=== PATIENT | female | born 1970 | race Caucasian/White ===

== ENCOUNTER 2019-08-17 13:32 | Outpatient (CLI) | payer BC, SELFPAY ==
[2019-08-17] MEDS: SODIUM CHLORIDE 0.9% IV 1,000 ML 500 ML IVPB (14:05)
[2019-08-17 14:08] VITALS: BP 150/88; PULSE 100; RESP 16; TEMP 36.8; O2SAT 97
--- NOTE | 2019-08-17 17:02 | PC.NURSE ---
Patient tolerated fluids well. No c/o nausea @ time of discharge. Patient states I feel better. Patient ambulated to exit to meet .
== END 2019-08-17 13:33 | disposition home or self-care (01) ==
PROVIDERS: PCP Nurse Practitioner Family; Visit Provider Nurse Practitioner Family
DX: R11.2 Nausea with vomiting, unspecified (principal); E86.0 Dehydration
CPT/HCPCS: 96360; 96361

== ENCOUNTER 2019-08-18 09:15 | Outpatient (CLI) | payer BC, SELFPAY ==
--- NOTE | 2019-08-18 09:22 | ECG_ITS ---
Measurements Intervals [place] Rate: 91 P: 68 GA: 129 QRS: 87 QRSD: 88 T: 37 QT: 371 QTc: 457 Interpretive Statements SINUS RHYTHM WITH SINUS ARRHYTHMIA RIGHT ATRIAL ENLARGEMENT DELAYED PRECORDIAL R/S TRANSITION BORDERLINE ECG Electronically Signed On 08-18-2019 9:54:13 CDT by Johnathan Fatima D.O.
[2019-08-18 09:34] LABS: Basophils Absolute Auto 0.02 K/mm3 (0.00-0.10); Basophils Percent Auto 0.1 % (0.0-1.0); Eosinophils Absolute Auto 0.01 K/mm3 (0.02-0.50); Eosinophils Percent Auto 0.1 % (1.0-6.0); Hemoglobin 15.8 g/dL (12.0-15.0); Immature Granulocyte Absolute 0.09 K/mm3 (0.00-0.00); Immature Granulocyte Percent A 0.5 % (0.0-0.0); Lymphocytes Absolute Auto 2.27 K/mm3 (1.10-4.50); Lymphocytes Percent Auto 13.5 % (18.0-42.0); Mean Corpuscular HGB Conc 35.1 g/dL (32.0-36.0); Mean Corpuscular Hemoglobin 31.1 pg (27.0-31.0); Mean Corpuscular Volume 88.6 fL (78.0-102.0); Mean Platelet Volume 9.5 fl (9.2-11.8); Monocytes Absolute Auto 0.96 K/mm3 (0.10-0.90); Monocytes Percent Auto 5.7 % (2.0-11.0); Neutrophils Absolute Auto 13.4 K/mm3 (1.7-7.2); Neutrophils Percent Auto 80.1 % (50.0-70.0); Platelet Count Result 598 K/mm3 (150-420); Red Blood Count 5.08 M/mm3 (4.20-5.40); Red Cell Distribution Width 12.7 % (11.6-14.4); White Blood Count 16.8 K/mm3 (4.8-10.8)
[2019-08-18 09:39] LABS: Add Urine Microscopic? YES; Appearance Urine Clear (Clear); Bilirubin Urine Negative (Negative); Blood Urine 3+ (Negative); Color Urine Yellow (Yellow); Glucose Urine UA Negative (Negative); Ketones Urine Trace (Negative); Leukocyte Esterase Ur Negative (Negative); Nitrate Urine Negative (Negative); Protein Urine 3+ (Negative); Specific Grav Ur 1.025 (1.010-1.020); Urobilinogen Urine 0.2 mg/dL (0.2-1.0); pH Urine 6.5 (5.0-8.0)
[2019-08-18 09:46] LABS: Squamous Epithelial Cell Urine Many /hpf (Few); WBC Urine None seen /hpf (0-3)
[2019-08-18 09:47] LABS: Bacteria Urine 2+ /hpf
[2019-08-18 09:59] LABS: Alanine Aminotransferase 22 U/L (14-59); Albumin Level 4.2 g/dL (3.4-5.0); Alkaline Phosphatase 76 U/L (46-116); Aspartate Amino Transferase 23 U/L (15-37); Bilirubin,Total 0.5 mg/dL (0.00-1.00); Blood Urea Nitrogen 18 mg/dL (7-18); Calcium 9.3 mg/dL (8.5-10.1); Carbon Dioxide 28 mmol/L (21-32); Chloride 97 mmol/L (98-108); Cholesterol 189 mg/dL (0-200); Estimated Glomerular Filt Rate > 60; Glucose 134 mg/dL (70-99); HDL Direct 77 mg/dL (40-60); LDL Cholesterol Calculated 91 mg/dL (<130); Osmolality Calculated 287 mOsm/kg (285-295); Sodium 137 mmol/L (136-145); Thyroid Stimulating Hormone 2.21 uIU/mL (0.36-3.74); Triglycerides 104 mg/dL (0-150)
[2019-08-18 10:01] LABS: Troponin I 0.21 ng/mL (0.00-0.056)
== END 2019-08-18 09:16 | disposition home or self-care (01) ==
PROVIDERS: PCP Nurse Practitioner Family; Visit Provider Nurse Practitioner Family
DX: R00.0 Tachycardia, unspecified (principal); I10 Essential (primary) hypertension
CPT/HCPCS: 36415; 80053; 80061; 81001; 84443; 84484; 85025; 85055; 93005

== ENCOUNTER 2019-08-18 10:08 | Emergency (ER) | payer BC, SELFPAY ==
--- NOTE | ~2019-08-18 | XR_ITS ---
EXAMINATION: XR chest 2V DATE: 08/18/2019 10:57 INDICATION: Chest pain and hypertension TECHNIQUE: PA and lateral views of the chest were obtained. COMPARISON: None FINDINGS: The lungs are clear with no focal airspace opacities, pulmonary edema, pleural effusion or pneumothor ax. The cardiomediastinal silhouette is normal. Heterotopic ossification along the left coracoclavicu lar ligament likely sequela of old trauma. IMPRESSION: 1. No acute cardiopulmonary disease. Reviewed, dictated and finalized at location A.
[2019-08-18 10:10] VITALS: BP 151/97; PULSE 73; RESP 20; TEMP 36.9; O2SAT 99
--- NOTE | 2019-08-18 10:13 | ED.CHESTPAIN ---
HPI - Chest Pain General Chief Complaint: Shortness of Breath/Dyspnea Stated Complaint: Chest Pains Source: patient Mode of arrival: ambulatory Limitations: no limitations History of Present Illness HPI narrative: 49-year-old woman sent over to the emergency department today from a clinic after finding that she had a troponin 0.21 and had chest pain and elevated blood pressure overnight. Patient states that she has remote history of hypertension but through weight loss and exercise has managed well. On 08/13 she went out picked mushrooms and ate some of them. On the evening of 08/14 she began to have fever, chills, abdominal pain, nausea and vomiting. She states that she had very little diarrhea. The vomiting continued until yesterday. She received IV fluids in the clinic yesterday and states that Zofran controlled her vomiting. It was also noted in the clinic that she had hypertension (159/102) and she was prescribed 3 BP meds which she hasn't yet taken. Last evening she began to have a very fast heart rate, like her heart was beating out of her chest and was accompanied by lightheadedness and shortness of breath. She denies syncope. complaint: chest pain Onset (ago): hour(s) (12) Timing of current episode: episodic and now resolved Onset: during rest Pain location: substernal Pain radiation: none Severity: moderate Quality: tightness Relieving factors: nothing Exacerbating factors: nothing Associated symptoms: nausea, vomiting and fever Risk Factors Coronary artery disease risk factors: smoking history ( former), hypertension ( treated with weight loss and exercise) and family history of CAD before age 50 ( grandmother had an [place] in her 50s) Related Data On Oral Contraceptives: No Allergies Allergy/AdvReac Type Severity Reaction Status Date / Time No Known Allergies Allergy Unverified 08/18/19 08:55 Review of Systems Constitutional: Constitutional: Reports chills and Reports fever(s) Eyes: Eyes: Denies change in vision and Denies photophobia ENT: Denies dysphagia, Denies nasal congestion and Denies sore throat Cardiovascular: Cardiovascular: Reports as per HPI, Reports chest pain, Reports rapid heart rate and Denies radiating jaw, neck or arm pain Respiratory: Respiratory: Denies chest congestion, Denies cough, Reports dyspnea and Denies wheezing Gastrointestinal: Gastrointestinal: Reports abdominal pain, Reports nausea and Reports vomiting Genitourinary: Genitourinary: Denies nocturia and Denies dysuria Musculoskeletal: Musculoskeletal: Denies back pain, Denies joint swelling and Denies muscle cramps Integumentary/Breasts: Skin/Breast: Denies pruritus, Denies erythema and Denies rash Neurologic: Denies vertigo, Denies dizziness and Denies syncope Psychiatric: Psychiatric: Denies anxiety and Denies depression Hematologic/Lymphatic: Hematologic/Lymphatic: Denies easy bleeding and Denies easy bruising Allergic/Immunologic: Allergic/Immunologic: Denies lip swelling and Denies wheezing PMFSH Past Medical History Medical History (Updated 08/18/19 @ 12:31 by Alex Hirsch MD) Benign hypertension Hemorrhoids Hereditary multiple exostosis Nicotine dependence in remission Surgical History Surgical History (Updated 08/18/19 @ 11:30 by Alex Hirsch MD) History of Social History Social History Smoking packs per day: 1 Smoking cigarettes per day: 20.0 Years smoked: 35 Smoking pack-years: 35.00 Smoking status: Former smoker Alcohol intake: current Substance use: never Substance use type: does not use Gender identity (if verbalized by the patient): Female Spiritual care concerns: No Exam Const: General: healthy appearing, no acute distress and alert Orientation/consciousness: patient oriented x3 Limitations: no limitations HENMT: Ears: external ears normal, TM's normal bilaterally and EAC's normal M
--- NOTE | 2019-08-18 10:20 | ECG_ITS ---
Measurements Intervals [place] Rate: 85 P: 65 [place]: 136 QRS: 76 QRSD: 85 T: 16 QT: 394 QTc: 471 Interpretive Statements SINUS RHYTHM WITH SINUS ARRHYTHMIA DELAYED PRECORDIAL R/S TRANSITION BORDERLINE ST-T WAVE ABNORMALITY- INFERIOR LEADS BORDERLINE ECG Electronically Signed On 08-18-2019 10:34:03 CDT by Johnathan Fatima D.O.
[2019-08-18] MEDS: ASPIRIN 81 MG CHEWABLE TABLET 324 MG PO (10:49)
--- NOTE | 2019-08-18 10:52 | PC.NURSE ---
Report given to ELVIE Yoder
[2019-08-18 10:56] LABS: Amphetamine Screen Urine Negative (Negative); Barbiturate Screen Urine Negative (Negative); Benzodiazepines Screen Urine Negative (Negative); Cannabinoid Screen Urine Positive (Negative); Cocaine Screen Urine Negative (Negative); Methadone Screen Urine Negative (Negative); Opiate Screen Urine Negative (Negative); Phencyclidine Screen Urine Negative (Negative)
[2019-08-18] MEDS: SODIUM CHLORIDE 0.9% IV 1,000 ML 999 ML IV CONT (11:25)
[2019-08-18 11:26] LABS: INR 1.1; Partial Thromboplastin Time 28.8 SEC (22.3-31.6); Prothrombin Time 11.1 Seconds (9.64-11.0)
[2019-08-18] MEDS: ENOXAPARIN 60 MG/0.6 ML SYRINGE 50 MG SUB-Q (11:27)
[2019-08-18 11:28] LABS: D Dimer 0.66 mg/L (0.19-0.50)
[2019-08-18 11:34] LABS: Creatine Kinase 99 U/L (26-192); Lactate Dehydrogenase 275 U/L (81-234); Phosphorus 2.7 mg/dL (2.6-4.7)
[2019-08-18 11:37] LABS: Influenza Control Valid (Valid)
--- NOTE | 2019-08-18 11:42 | PC.NURSE ---
[facility] contacted for cardiology consult.
[2019-08-18 11:43] VITALS: BP 167/98; PULSE 81; RESP 16; O2SAT 99
[2019-08-18 11:49] LABS: Acetaminophen 1 ug/mL (10-30); Salicylate 1.9 mg/dL (2.8-20.0)
--- NOTE | 2019-08-18 11:50 | PC.NURSE ---
Pt ambulatory to bathroom. No complaints at this time.
[2019-08-18 11:51] LABS: Lipase 145 U/L (73-393)
[2019-08-18 11:56] LABS: Ethanol < 3 mg/dL (0-6)
--- NOTE | 2019-08-18 12:45 | PC.NURSE ---
Pt to be admitted to [facility] icu 5, dr mendez to accept pt.
--- NOTE | 2019-08-18 13:03 | PC.NURSE ---
Report called to [facility] nurse Noah. [facility] contacted for transfer. Pt updated.
[2019-08-18 13:04] VITALS: BP 175/98; PULSE 86; RESP 14; O2SAT 98
[2019-08-18 13:17] LABS: Troponin I 0.14 ng/mL (0.00-0.056)
[2019-08-19 13:42] LABS: SARS-CoV-2 RNA PCR Negative
== END 2019-08-18 13:27 | disposition short-term general hospital (02) ==
PROVIDERS: Emergency Provider Emergency Medicine
DX: I21.4 Non-ST elevation (NSTEMI) myocardial infarction (principal); I10 Essential (primary) hypertension; Z87.891 Personal history of nicotine dependence; Z20.828 Contact with and (suspected) exposure to other viral communicable diseases
CPT/HCPCS: 36415; 71046; 80307; 82550; 82553; 83615; 83690; 84100; 84484; 85380; 85610; 85730; 87040; 87086; 87088; 87635; 87804; 93005; 96360; 96372; 99285; A9270; C9803; J1650; J7030; U0003

== ENCOUNTER 2019-08-18 14:04 | Inpatient (IN) | payer BC, SELFPAY ==
[2019-08-18] VITALS (25 sets, daily range): BP systolic 170–244; BP diastolic 82–128; PULSE 66–151; RESP 15–22; TEMP 36.8–37.1; O2SAT 94–99; BMI 22.2
--- NOTE | ~2019-08-18 | US_ITS ---
EXAMINATION: US retroperitoneal duplex ltd DATE: 08/19/2019 11:13 INDICATION: Severe hypertension TECHNIQUE: Multiple grayscale, color Doppler, and pulsed Doppler images of the kidneys and renal danielle maxine were obtained. COMPARISON: CT dated 08/18/2019 FINDINGS: The aorta peak systolic velocity is 80 cm/s. The right renal artery peak systolic velocity is 112 cm/ s in the proximal segment, 232 cm/s in the mid segment, and 92 cm/s in the distal segment. The left r enal artery peak systolic velocity is 236 cm/s in the proximal segment, 146 cm/s in the mid segment, and 143 cm/s in the distal segment. IMPRESSION: 1. Elevated peak systolic velocities in the bilateral renal arteries which would be consistent with >50-60% stenosis however no evident stenosis is evident at the left or right renal arteries on the co ntrast-enhanced CT study from one day prior. Reviewed, dictated and finalized at location A. IMPRESSION: 1. Elevated peak systolic velocities in the bilateral renal arteries which wou ld be consistent with >50-60% stenosis however no evident stenosis is evident a t the left or right renal arteries on the contrast-enhanced CT study from one d ay prior.
--- NOTE | ~2019-08-18 | CT_ITS ---
EXAMINATION: CT brain wo con EXAM DATE: 08/18/2019 21:54 INDICATION: Sepsis. Central headache, hypertension. TECHNIQUE: Spiral CT of the head was performed without contrast. Axial, coronal and sagittal images were reviewed. The dose-length product (DLP) for this examination was 605.33 mGy-cm. The exposure w as tailored according to patient size, and iterative reconstruction (ASIR) was used as additional dos e reduction technique. There is no prior study for comparison. FINDINGS: There is no acute intraparenchymal hemorrhage. No evidence of intraparenchymal brain mass lesion. No evidence of acute infarction. There is no mass effect or midline shift. The ventricles are normal in size. There are no extra-axial collections. There are no acute calvarial fractures. T he orbits are unremarkable. Soft tissue is unremarkable. The visualized sinuses and mastoid air ilan ls are well aerated. IMPRESSION: 1. Unremarkable head CT examination. Reviewed, dictated and finalized at location G.
--- NOTE | ~2019-08-18 | CT_ITS ---
EXAMINATION: CT chest abdomen pelvis w con EXAM DATE: 08/18/2019 21:55 INDICATION: Hypertension. Sepsis. Influenza B. Central headache. TECHNIQUE: Spiral CT of the chest, abdomen and pelvis was performed following intravenous injection o f 100 mL Omnipaque 350. Axial, coronal and sagittal images were reviewed. The dose-length product ( DLP) for this examination was 386.39 mGy-cm. The exposure was tailored according to patient size (au to mA exposure control), and iterative reconstruction (ASIR) was used as additional dose reduction te chnique. Comparison is made to prior examination from 03/03/2018. FINDINGS: CHEST: There is mild to moderate emphysema. Triangular-shaped 5 mm right middle lobe nodule likely g ranuloma. There is round 3 mm right middle lobe perihilar nodule, image 65. Optional twelve-month fol low-up low-dose chest CT. There are no pleural or pericardial effusions. Tracheobronchial tree is p atent. There is no mediastinal, hilar or axillary lymphadenopathy. There is no pneumothorax. He art normal in size. No evidence of coronary arterial calcification. No central pulmonary emboli. ABDOMEN PELVIS: The liver, spleen, adrenal glands and pancreas are unremarkable. Gallbladder is unre markable. No biliary obstruction. Portal and splenic veins are patent. Kidneys enhance symmetrical ly. There is no hydronephrosis. There is IUD which appears to be centrally located within the endo metrium, expected position. The bladder is unremarkable. There is no retroperitoneal or pelvic lymp hadenopathy. There is mild scattered arteriosclerotic disease. The appendix is normal. The stomach and small bowel are unremarkable. There is expected amount of c olonic stool. No free intraperitoneal gas. There are no osteoblastic or osteolytic lesions identi fied. IMPRESSION: 1. Couple of small right middle lobe nodule statistically most likely granulomas; optional twelve-mo nth follow-up low-dose chest CT. 2. No acute chest, abdomen or pelvis findings. Reviewed, dictated and finalized at location G. IMPRESSION: 1. Couple of small right middle lobe nodule statistically most likely granulom as; optional twelve-month follow-up low-dose chest CT. 2. No acute chest, abdomen or pelvis findings.
--- NOTE | 2019-08-18 14:28 | ADMGEN ---
This patient, Thu Duval, was admitted to Intensive Care Unit-5 at 1402. Patient/family oriented to hospital policies and general routines including ID bracelet, bed and alarms, visiting hours, pain management, procedures, bathroom and other care routines, personal items, smoking policy, room service/diet, and visiting hours. Valuables list has been completed. Information on how to activate the Rapid Response Team has been discussed. Patient/Family are encouraged to report perceived risks to care and to ask questions if they do not understand what they are told or what they should do.
--- NOTE | 2019-08-18 15:03 | WPDCN ---
Assessment and Plan Assessment and plan (1) Elevated troponin: Code(s): R79.89 - Other specified abnormal findings of blood chemistry Status: Acute Assessment and Plan: Very mildly elevated troponin in the face of tachycardia, severe hypertension, nausea and vomiting, dehydration, and influenza B. Doubt underlying heart disease, not ACS. However this is a marker that patient needs aggressive primary prevention. check Echo. (2) Tachycardia: Code(s): R00.0 - Tachycardia, unspecified Status: Acute Assessment and Plan: The patient's chief complaint is that her heart felt like it was beating hard and fast. She likely had some sinus tachycardia this morning. Doubt any other arrhythmia. She never had any chest pain. I am not impressed with her EKG changes. (3) Uncontrolled hypertension: Code(s): I10 - Essential (primary) hypertension Status: Acute Assessment and Plan: History of hypertension, worsening recently. Needs blood pressure medications resumed. 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 (4) Influenza B: Code(s): J10.1 - Influenza due to other identified influenza virus with other respiratory manifestations Status: Acute Assessment and Plan: Somewhat atypical presentation, recovering. Will leave the decision of Tamiflu up to the hospitalist. (5) Nausea vomiting and diarrhea: Code(s): R11.2 - Nausea with vomiting, unspecified; R19.7 - Diarrhea, unspecified Status: Acute Assessment and Plan: Will give some more IV fluids and resume diet. (6) Hypokalemia: Code(s): E87.6 - Hypokalemia Status: Acute Assessment and Plan: Give p.o. potassium and recheck potassium and magnesium in the morning. HPI Data of Consult Date/Time: 08/18/19 15:03 Requesting Physician: Fozia Dozier MD Primary Care Provider: Date of service: 08/18/2019 Thu Duval is a 49-year-old female whom I was asked to see at the request of Dr. Dozier for my advice and opinion regarding her palpitations and elevated troponin in consultation. She is also positive for influenza B. COVID screen is still pending. Ms. Duval was in her normal state of health on Friday when she was out picking [employer] mushrooms. Very early Friday morning she started having problems with nausea and vomiting, chills and sweats, and myalgias. She had abdominal pain, a little diarrhea but no coughing or shortness of breath. She could not keep anything down for the next few days and saw the nurse practitioner Pearl Garcia in [place] on Friday. Her temperature was 99.6 and blood pressure 159/102 mmHg. She received a L of IV fluids and Zofran and felt better to eat a little. Last night and this morning she felt like her heart was going to be out of her chest, with hard fast heartbeats and she asked her to take her to the nurse practitioner. She denied any chest tightness, pain or pressure, or discomfort in her neck, jaw or arms. She felt just a ?quickness? in her chest. She went back to see the nurse practitioner, and her blood pressure was 182/122, heart rate 113 p.m.. She was given prescriptions for lisinopril, HCT and metoprolol which she has not yet started. Later went to the ER she was found to have a mildly elevated troponin of 0.21 blood pressure of 151/97, and sent to [facility] with a diagnosis of a non-STEMI. The patient was treated for hypertension to years ago but after she lost weight and quit smoking her blood pressure normalized. She has never had trouble with cholesterol. She is very physically active with no chest pain, pressure, or tightness and bikes 5 miles regularly with no problems. No family history of heart di
--- NOTE | 2019-08-18 15:45 | PM.IMHP ---
H&P: HPI History of Present Illness Chief complaint: Elevated troponin. Narrative: Thu Duval is a 49-year-old female with history of hypertension, no longer on medication after weight loss and exercise, who is being directly admitted to the hospitalist service from the emergency department at the [facility] for further evaluation of an elevated troponin level. She was in her usual state of health on 08/14/2019, and in fact spent some of the day picking [place] mushrooms which she consumed later that evening. The following evening, she began to feel poorly with diffuse abdominal pain, nausea, vomiting, and mild diarrhea. Additionally, she notes subjective fever, chills, and sweats. She was seen yesterday afternoon (08/17/2019) at her primary care provider's office, where her vital signs were as follows: Blood pressure 159/102, pulse ox 98% room air, temperature 99.6?, pulse 126, respiratory rate 18. She was given IV fluid rehydration for presumed dehydration and she was also given Zofran with some improvement. She had a follow-up appointment this morning, and while she still has nausea, she has not vomited since yesterday. She did not sleep well last night, due to restlessness and ?just not feeling right.? She also reported feelings of palpitations and as though her heart was beating out of her chest. Vital Signs in office today as follows: Pulse 113, respiratory 18, blood pressure 182/122, pulse ox 98% room air, temperature 99.0?. She was encouraged to come to the emergency department, but she declined. At that time, she was sent for lab work and was given prescriptions to resume antihypertensives, to include hydrochlorothiazide, metoprolol tartrate, and lisinopril. Her troponin came back elevated at 0.21, and she was then directed to the emergency department at [facility] for further evaluation. An EKG done on arrival to the emergency department was read as sinus rhythm with sinus arrhythmia, right atrial enlargement, and delayed precordial R/S transition. Repeat troponins have since trended downward. Pertinent labs drawn at outside hospital include: White blood cells 16.8, hemoglobin 15.8, hematocrit 45.0, platelets 598. PT 11.1, INR 1.1, PTT 28.8, D-dimer 0.66. Sodium 137, potassium 3.0, chloride 97, carbon dioxide 28, anion gap 15, BUN 18, creatinine 0.90, glucose 134. Total bilirubin 0.5, AST 23, ALT 22, alkaline phosphatase 76, LDH 275, total CK 99. Urinalysis: Specific gravity 1.025, 3+ protein, trace ketones, 3+ blood, 11 to 20 RBCs, no white blood cells, many squamous cells, 2+ bacteria, 3 to 4 granular casts. Urine drug screen positive for cannabinoids. She tested positive for influenza B. Chest x-ray showed no acute cardiopulmonary disease. Because of elevated troponins, she is being transferred to [facility] for consultation with a leg assembler. On arrival to [facility], her blood pressure was 175/98 at her pulse was 86. She was started on antihypertensives and was given lisinopril 10 milligrams and metoprolol succinate 25 milligrams at 16:48. Shortly thereafter, her blood pressure began to spike and she has become tachycardic. Her blood pressure less than 1 hour after taking those medications was as high as 244/128, and her pulse has been as high as the 160s with the appearance of sinus tachycardia on telemetry. At the time my evaluation, she tells me she just cannot get comfortable. She complains of having sweats, feeling flushed, and of being chilled all at the same time. She continues to have nausea but is not have had vomiting since last evening. Her abdomen is diffusely tender, and she reports that it feels like her insides are ?squeezing.? She does feel her heart racing, which causes her some anxiety. She has a mild headache. She also reports a mild, nonproductive cough. She denies chest pain, pleuritic pain, and shortness of breath. No auditory or visual changes.
[2019-08-18] MEDS: SODIUM CHLORIDE 0.9% IV 1,000 ML 125 ML IV CONT (16:17)
[2019-08-18 16:45] LABS: Lactic Acid Reflex 0.8 mmol/L (0.7-2.1)
[2019-08-18] MEDS: METOPROLOL SUCCINATE EXT REL 25 MG TABCR PO (16:48)
[2019-08-18] MEDS: lisinopriL 10 MG TABLET PO (16:48)
[2019-08-18] MEDS: POTASSIUM CHLORIDE 20 MEQ TABLET.ER 40 MEQ PO (16:49)
[2019-08-18 16:51] LABS: Blood Urea Nitrogen 17 mg/dL (7-17); Calcium 8.7 mg/dL (8.4-10.2); Carbon Dioxide 26 mmol/L (22-30); Chloride 105 mmol/L (98-107); Estimated Glomerular Filt Rate > 60; Glucose 101 mg/dL (65-105); Phosphorus 2.4 mg/dL (2.5-4.5); Potassium 2.8 mmol/L (3.4-5.0); Sodium 137 mmol/L (137-145)
[2019-08-18 16:59] LABS: Troponin I 0.081 ng/mL (0.000-0.034)
[2019-08-18] MEDS: hydrALAZINE HCL 20 MG/ML VIAL 10 MG IV PUSH (17:37)
[2019-08-18 19:57] LABS: NT Pro B Type Natriuretic Pept 2660 PG/ML (5-100)
[2019-08-18] MEDS: ACETAMINOPHEN 325 MG TABLET 650 MG PO (22:12)
[2019-08-19] VITALS (26 sets, daily range): BP systolic 131–213; BP diastolic 76–111; PULSE 70–119; RESP 17–20; TEMP 36.6–37.3; O2SAT 97–100
[2019-08-19] MEDS: SODIUM CHLORIDE 0.9% IV 1,000 ML 125 ML IV CONT ×2 (00:50→11:49)
[2019-08-19] MEDS: METOPROLOL TARTRATE INJ 5 MG/5 ML VIAL IV PUSH ×2 (01:40→14:15)
[2019-08-19] MEDS: hydrALAZINE HCL 20 MG/ML VIAL 10 MG IV PUSH ×2 (03:46→14:42)
[2019-08-19 04:18] LABS: Basophils Percent Auto 0.1 % (0.2-1.2); Hematocrit 39.9 % (37.0-47.0); Hemoglobin 13.6 g/dL (12.0-15.0); Immature Granulocyte Absolute 0.06 K/mm3 (0.00-0.031); Immature Granulocyte Percent A 0.4 % (0-0.5); Lymphocytes Absolute Auto 2.78 K/mm3 (0.9-3.2); Lymphocytes Percent Auto 17.8 % (18.3-44.2); Mean Corpuscular HGB Conc 34.1 g/dl (32-36); Mean Corpuscular Hemoglobin 30.3 pg (26-34); Mean Corpuscular Volume 88.9 fl (80-100); Mean Platelet Volume 9.9 fl (7.4-10.4); Monocytes Absolute Auto 1.2 K/mm3 (0.1-0.6); Monocytes Percent Auto 7.3 % (2.6-8.5); Neutrophils Absolute Auto 11.7 K/mm3 (1.3-6.7); Neutrophils Percent Auto 74.4 % (45.5-73.1); Platelet Count Result 521 k/mm3 (150-375); Red Blood Count 4.49 M/mm3 (4.2-5.4); Red Cell Distribution Width 12.9 % (11.5-14.5); White Blood Count 15.7 K/mm3 (4.5-10.0)
[2019-08-19 04:28] LABS: Lactic Acid 0.7 mmol/L (0.7-2.1)
[2019-08-19 04:32] LABS: Alanine Aminotransferase 16 U/L (4-35); Albumin Level 3.9 g/dL (3.5-5.1); Alkaline Phosphatase 66 U/L (38-126); Aspartate Amino Transferase 25 U/L (14-36); Bilirubin,Total 0.3 mg/dL (0.2-1.3); Blood Urea Nitrogen 12 mg/dL (7-17); CRP 0.7 mg/dL (<1.0); Calcium 8.4 mg/dL (8.4-10.2); Carbon Dioxide 25 mmol/L (22-30); Chloride 102 mmol/L (98-107); Estimated Glomerular Filt Rate > 60; Glucose 110 mg/dL (65-105); Magnesium 1.7 mg/dL (1.6-2.3); Phosphorus 2.7 mg/dL (2.5-4.5); Potassium 2.9 mmol/L (3.4-5.0); Sodium 134 mmol/L (137-145)
[2019-08-19] MEDS: METOPROLOL SUCCINATE EXT REL 25 MG TABCR PO (09:25)
[2019-08-19] MEDS: POTASSIUM CHLORIDE 20 MEQ TABLET.ER 40 MEQ PO (09:25)
--- NOTE | 2019-08-19 09:33 | PM.IMPN ---
Progress Note: A&P Assessment and Plan (1) Severe hypertension: Code(s): I10 - Essential (primary) hypertension Status: Acute Assessment and Plan: Last treated for hypertension approximately 2 years ago but improved with weight loss and exercise. Had difficulty on presentation with severely elevated blood pressure. Urine drug screen was positive for cannabinoids only. Blood pressure reviewed on 08/19/2019 and still remains elevated but not as high. Renal ultrasound and echocardiogram pending. Metanephrines pending. COVID-19 testing pending. On hold. Continue metoprolol. IV hydralazine as needed. Appreciate help from Cardiology. Will continue to monitor while awaiting additional tests. Adjust treatment as needed. (2) Tachycardia: Code(s): R00.0 - Tachycardia, unspecified Status: Acute Assessment and Plan: Telemetry reviewed on 08/19/2019 with heart rate now controlled with patient in sinus rhythm. COVID-19 testing pending as noted. Positive for influenza B. Additional testing ordered as noted above. Spiral CT chest, abdomen, pelvis with couple of small right middle lobe nodules statistically most likely granulomas with recommendation for follow-up low-dose chest CT in 12 months but no acute findings. Metanephrines still pending as noted. TSH normal. Will continue to monitor. (3) Hypokalemia: Code(s): E87.6 - Hypokalemia Status: Acute Assessment and Plan: Potassium still low at 2.9 this morning. IV replacement as well as oral replacement ordered. Will continue to monitor replace as needed. Magnesium 1.7. (4) Influenza B: Code(s): J10.1 - Influenza due to other identified influenza virus with other respiratory manifestations Status: Acute Assessment and Plan: Positive for influenza B at [facility]. Tamiflu not initiated as symptoms present for 5 days on presentation. Currently no respiratory symptoms. On room air. Chest x-ray as well as CT chest negative for acute changes. (5) Elevated troponin: Code(s): R79.89 - Other specified abnormal findings of blood chemistry Status: Acute Assessment and Plan: Cardiology consulted and appreciate input. Troponin levels mildly elevated and decreasing. Telemetry as noted above. Echocardiogram pending as noted above. (6) Abdominal pain: Qualifiers: Abdominal location: generalized Qualified Code(s): R10.84 - Generalized abdominal pain Code(s): R10.9 - Unspecified abdominal pain Status: Acute Assessment and Plan: Nausea and vomiting have now subsided. CT abdomen/pelvis with no acute changes as noted above. (7) DVT prophylaxis: Code(s): Z29.9 - Encounter for prophylactic measures, unspecified Status: Acute Assessment and Plan: SCDs. Time Spent With Patient Time with patient: 15 - 25 minutes Subjective Date/time seen: 08/19/19 09:33 Interval history: Date of Service: 08/19/2019. Admitted with severe hypertension, tachycardia, elevated troponin level, influenza B. Feels much better this morning. Does feel tired. No headache. No chest pain or palpitations. No shortness of breath. No abdominal pain. No nausea or vomiting. Review of Systems Review of Systems: Narrative: Feeling better this morning. Constitutional: Constitutional: Denies chills, Reports fatigue and Denies fever(s) ENT: Denies dysphagia Cardiovascular: Cardiovascular: Denies chest pain and Denies palpitations Respiratory: Respiratory: Denies cough and Denies dyspnea Gastrointestinal: Gastrointestinal: Denies abdominal pain, Denies nausea and Denies vomiting Genitourinary: Genitourinary: Reports no additional female genitourinary complaints Musculoskeletal: Musculoskeletal: Reports no additional musculoskeletal complaints Integumentary/Breasts: Skin/Breast: Denies rash Neurologic: Denies headache(s) Psychiatric: Psychiatric: De
[2019-08-19 14:50] LABS: Potassium 3.1 mmol/L (3.4-5.0)
[2019-08-19] MEDS: ONDANSETRON INJ 4 MG/2 ML VIAL IV PUSH (15:14)
--- NOTE | 2019-08-19 15:30 | PM.PNCARD ---
Progress Note: A&P Assessment and Plan (1) Elevated troponin: Code(s): R79.89 - Other specified abnormal findings of blood chemistry Status: Acute Assessment and Plan: Very mildly elevated troponin in the face of tachycardia, severe hypertension, nausea and vomiting, dehydration, and influenza B. Doubt underlying heart disease, not ACS. Echo pending (2) Tachycardia: Code(s): R00.0 - Tachycardia, unspecified Status: Acute Assessment and Plan: No complaints of palpitatons. No tachycardia on monitor. Beta Alexi started (3) Uncontrolled hypertension: Code(s): I10 - Essential (primary) hypertension Status: Acute Assessment and Plan: History of hypertension, worsening recently. Seemed to spike after eating last evening and this afternoon. BP still not controlled. No renal artery stenosis on CT scan Stop prn Metoprolol IV. Continue Metoprolol succinate 25 mg daily. Lisinopril 10 mg p.o. now and daily. Continue p.r.n. hydralazine for now. If her blood pressure is elevated near the time for scheduled medications give her medications early. (4) Influenza B: Code(s): J10.1 - Influenza due to other identified influenza virus with other respiratory manifestations Status: Acute Assessment and Plan: Somewhat atypical presentation, recovering. Management per hospitalist (5) Nausea vomiting and diarrhea: Code(s): R11.2 - Nausea with vomiting, unspecified; R19.7 - Diarrhea, unspecified Status: Acute Assessment and Plan: No further vomiting. Slight nausea on review of systems. Taking in p.o. fluids. Discontinue IV fluids. (6) Hypokalemia: Code(s): E87.6 - Hypokalemia Status: Acute Assessment and Plan: Potassium 2.9 this morning. Has received 40 mEq IV as well as 40 mEq p.o.. Repeat potassium is 3.1. Receiving more p.o. potassium. (7) Murmur: Code(s): R01.1 - Cardiac murmur, unspecified Status: Acute Assessment and Plan: Echo pending. Has never been told she had a murmur. Discussed what a murmur is. Echocardiogram will give us more information. Additional Plan Plan discussed with Dr Madrigal [id number] 08/19/2019 Time Spent With Patient Time with patient: 15 - 25 minutes Subjective Date/time seen: 08/19/19 14:45 Interval history: Follow up for: severe hypertension, tachycardia, elevated troponin level, influenza B. Date of service: 08/19/2019 Subjective: Denied chest discomfort, shortness of breath or palpitations. Slight nausea but no vomiting for 2 days. No diarrhea. Some back discomfort. Concerned about her blood pressure. Review of Systems Constitutional: Constitutional: Denies body ache(s), Denies chills, Reports fatigue (Did not sleep well), Denies headache(s) and Reports weakness (Generalized) Eyes: Eyes: Denies blurry vision ENT: Denies headache(s), Denies epistaxis and Denies nasal congestion Cardiovascular: Cardiovascular: Denies chest pain, Denies diaphoresis, Denies palpitations and Denies dyspnea Respiratory: Respiratory: Denies cough, Denies hemoptysis, Denies dyspnea and Denies wheezing Gastrointestinal: Gastrointestinal: Reports abdominal pain (muscular from vomiting (no vomiting for 2 days)), Denies hematochezia, Denies diarrhea, Reports nausea (Slight but able to eat.) and Denies vomiting Genitourinary: Genitourinary: Reports nocturia (Related IV fluids) and Denies dysuria Musculoskeletal: Musculoskeletal: Reports myalgias (Improving) Integumentary/Breasts: Skin/Breast: Denies rash Neurologic: Denies syncope, Denies headache(s) and Reports weakness (Generalized) Psychiatric: Psychiatric: Denies anxiety and Denies confusion E
[2019-08-19] MEDS: POTASSIUM CHLORIDE 20 MEQ TABLET 40 MEQ PO (15:36)
--- NOTE | 2019-08-19 15:41 | ECHO_ITS ---
Patient Info Name: Thu Duval Age: 49 years : 1970 Gender: Female Ht: 59 in Wt: 110 lbs BSA: 1.45 m2 HR: 75 bpm BP: 199 / 105 mmHg Heart Rhythm: Sinus Rhythm Technical Quality: Good Exam Date: 08/19/2019 2:36 PM Exam Location: [facility] Pulmonary Patient Status: Inpatient Admit Date: 08/18/2019 Staff Ordering Physician: Xena Madrigal MD Manager Life: Jian Torres, BELEM, RT Attending Provider: Fozia Miller MD Referring Physician: Rohan GUARDADO; Exam Type: CA echo doppler color flow Study Info Indications I27.2 - Other secondary pulmonary hypertension Complete two-dimensional, color flow and Doppler transthoracic echocardiogram is performed. Summary 1. There is mild mitral valve regurgitation. 2. Left ventricular chamber size and systolic function are normal with no regional wall motion abnormalities with an estimated ejection fraction of >70%. Grade 2 diastolic dysfunction is present. Mild septal hypertrophy is noted, with no evidence of left ventricular outflow tract obstruction or HOCM. Global longitudinal strain is -16%, mildly low, suggesting early systolic dysfunction. 3. Normal sinus rhythm. Left Ventricle Left ventricular chamber size and systolic function are normal with no regional wall motion abnormalities with an estimated ejection fraction of >70%. Grade 2 diastolic dysfunction is present. Mild septal hypertrophy is noted, with no evidence of left ventricular outflow tract obstruction or HOCM. Global longitudinal strain is -16%, mildly low, suggesting early systolic dysfunction. Left ventricular chamber dimension is normal. Left ventricular systolic function is normal, estimated at >70%. There is mild asymmetric septal increased left ventricular wall thickness. Left ventricular septal wall motion is normal. The left ventricular diastolic function is grade II diastolic dysfunction. Global longitudinal strain is mildly elevated at 16 %. Right Ventricle Right ventricular chamber dimension is normal. Right ventricular systolic function is normal. Left Atria Left atrial chamber dimension is normal. Right Atria Right atrial chamber dimension is normal. Aortic Valve The aortic valve is trileaflet. There is no aortic valve sclerosis. There is no aortic valve stenosis. There is no aortic valve regurgitation. Pulmonic Valve The pulmonic valve is normal. There is no pulmonic valve stenosis. There is no pulmonic regurgitation. Mitral Valve The mitral valve has normal leaflets. There is no mitral valve stenosis. There is mild mitral valve regurgitation. Tricuspid Valve The tricuspid valve leaflets are normal. There is no significant tricuspid valve stenosis. There is no tricuspid valve regurgitation. No pulmonary hypertension, estimated pulmonary arterial systolic pressure is Empty. Pericardium/Pleural The pericardium appears normal. There is no pericardial effusion. Inferior Vena Cava Normal inferior vena cava with >50% collapse upon inspiration consistent with Empty right atrial pressure, Empty. Aorta The aortic root size at the sinus of Valsalva is normal. The prox ascending aorta size is normal. Left Ventricular Outflow Tract Name Value Normal LVOT 2D
--- NOTE | 2019-08-19 18:40 | PC.NURSE ---
This patient, Thu Duval, was received from [ICU-5] on 08/19/19 at 1840. REPORT RECEIVED FROM EDUAR BERMEO. Personal belongings list checked and signed. Patient/family oriented to unit policies and routines
[2019-08-20] VITALS (19 sets, daily range): BP systolic 108–212; BP diastolic 61–108; PULSE 72–104; RESP 12–20; TEMP 36.3–37.3; O2SAT 98–100
[2019-08-20] MEDS: METOPROLOL TARTRATE INJ 5 MG/5 ML VIAL IV PUSH ×2 (00:11→15:26)
[2019-08-20 04:41] LABS: Hematocrit 40.8 % (37.0-47.0); Mean Corpuscular HGB Conc 34.3 g/dl (32-36); Mean Corpuscular Hemoglobin 30.7 pg (26-34); Mean Corpuscular Volume 89.5 fl (80-100); Mean Platelet Volume 9.2 fl (7.4-10.4); Platelet Count Result 519 k/mm3 (150-375); Red Blood Count 4.56 M/mm3 (4.2-5.4); Red Cell Distribution Width 12.9 % (11.5-14.5); White Blood Count 12.4 K/mm3 (4.5-10.0)
[2019-08-20 04:58] LABS: Blood Urea Nitrogen 8 mg/dL (7-17); Calcium 9.1 mg/dL (8.4-10.2); Carbon Dioxide 28 mmol/L (22-30); Chloride 101 mmol/L (98-107); Estimated Glomerular Filt Rate > 60; Glucose 108 mg/dL (65-105); Magnesium 1.9 mg/dL (1.6-2.3); Potassium 3.3 mmol/L (3.4-5.0); Sodium 134 mmol/L (137-145)
[2019-08-20] MEDS: METOPROLOL SUCCINATE EXT REL 25 MG TABCR PO ×2 (08:43→11:17)
[2019-08-20] MEDS: POTASSIUM CHLORIDE 20 MEQ TABLET.ER 40 MEQ PO (08:43)
[2019-08-20] MEDS: lisinopriL 10 MG TABLET PO (08:43)
--- NOTE | 2019-08-20 10:14 | PM.PNCARD ---
Progress Note: A&P Assessment and Plan (1) Elevated troponin: Code(s): R79.89 - Other specified abnormal findings of blood chemistry Status: Acute Assessment and Plan: Very mildly elevated troponin in the face of tachycardia, severe hypertension, nausea and vomiting, dehydration, and influenza B. Not ACS. Echo 08/19/2019:There is mild mitral valve regurgitation. Left ventricular chamber size and systolic function are normal with no regional wall motion abnormalities with an estimated ejection fraction of >70%. Grade 2 diastolic dysfunction is present. Mild septal hypertrophy is noted, with no evidence of left ventricular outflow tract obstruction or HOCM. Global longitudinal strain is -16%, mildly low, suggesting early systolic dysfunction. No ischemic workup is needed. Blood pressure control is imperative. (2) Tachycardia: Code(s): R00.0 - Tachycardia, unspecified Status: Acute Assessment and Plan: No complaints of palpitatons. Episodes of tachycardia yesterday afternoon and some this morning. Will increase Metoprolol succinate to 50 mg daily. Give an additional 25 mg this morning (3) Uncontrolled hypertension: Code(s): I10 - Essential (primary) hypertension Status: Acute Assessment and Plan: History of hypertension, worsening recently. Have seen a trend that she spikes after eating. Beta lorenzo as above Continue lisinopril at 10 mg daily. Most likely will need to be increased. If her blood pressure is elevated near the time for scheduled medications give her medications early. (4) Influenza B: Code(s): J10.1 - Influenza due to other identified influenza virus with other respiratory manifestations Status: Acute Assessment and Plan: Somewhat atypical presentation, recovering. Management per hospitalist (5) Nausea vomiting and diarrhea: Code(s): R11.2 - Nausea with vomiting, unspecified; R19.7 - Diarrhea, unspecified Status: Acute Assessment and Plan: No further vomiting. No further nausea. Taking in p.o. fluids. (6) Hypokalemia: Code(s): E87.6 - Hypokalemia Status: Acute Assessment and Plan: Potassium 3.3 this morning. Continue supplementation. Monitor closely as an outpatient. (7) Murmur: Code(s): R01.1 - Cardiac murmur, unspecified Status: Acute Assessment and Plan: Echo as above. Additional Plan No further cardiac recommendations. Cardiology will sign off. Please do not hesitate to call if we can be of further assistance. Does not need cardiology follow-up. Plan discussed with Dr. Szymanski [id number] 08/20/2019 Subjective Date/time seen: 08/20/19 10:14 Interval history: Follow up for: severe hypertension, tachycardia, elevated troponin level, influenza B. Date of service: 08/20/2019 Subjective: No chest discomfort, shortness of breath, palpitations or lightheadedness. No further nausea. Taking fluids and had oatmeal for breakfast. Review of Systems Constitutional: Constitutional: Denies body ache(s), Denies chills, Reports fatigue (Did not sleep well), Denies headache(s) and Reports weakness (Generalized) Eyes: Eyes: Denies blurry vision ENT: Denies headache(s), Denies epistaxis and Denies nasal congestion Cardiovascular: Cardiovascular: Denies chest pain, Denies diaphoresis, Denies syncope, Denies palpitations and Denies dyspnea Respiratory: Respiratory: Denies cough, Denies hemoptysis, Denies dyspnea and Denies wheezing Gastrointestinal: Gastrointestinal: Denies abdominal pain, Denies hematochezia, Denies diarrhea, Denies nausea and Denies vomiting Genitourinary: Genitourinary: Denies dysuria Musculoskeletal: Musculoskeletal:
--- NOTE | 2019-08-20 13:01 | PM.IMPN ---
Progress Note: A&P Assessment and Plan (1) Severe hypertension: Code(s): I10 - Essential (primary) hypertension Status: Acute Assessment and Plan: Last treated for hypertension approximately 2 years ago but improved with weight loss and exercise. Had difficulty on presentation with severely elevated blood pressure. Urine drug screen was positive for cannabinoids only. Blood pressure reviewed on 08/20/2019 and Under good control this morning but still having episodes of elevated blood pressure late afternoon. Discussed with Cardiology. Metoprolol succinate advanced this morning. Continue lisinopril which was restarted yesterday. IV hydralazine and IV metoprolol still available as needed. Metanephrines still pending. COVID-19 testing negative. Retroperitoneal duplex with elevated peak systolic velocities in the bilateral renal arteries which could be consistent with greater than 50-60% stenosis however no evidence stenosis evident at the left or right renal arteries on contrast enhanced CT previously done. Echocardiogram with EF greater than 70%, grade 2 diastolic dysfunction, mild septal hypertrophy. Will transfer to the medical floor to continue monitoring blood pressure. Hopeful discharge tomorrow. (2) Tachycardia: Code(s): R00.0 - Tachycardia, unspecified Status: Acute Assessment and Plan: Telemetry reviewed on 08/20/2019 with heart rate remaining controlled with patient in sinus rhythm. Echocardiogram as noted above. Spiral CT chest, abdomen, pelvis with couple of small right middle lobe nodules statistically most likely granulomas with recommendation for follow-up low-dose chest CT in 12 months but no acute findings. Metanephrines still pending as noted. TSH normal. Metoprolol advanced as noted above. Will continue to monitor. (3) Hypokalemia: Code(s): E87.6 - Hypokalemia Status: Acute Assessment and Plan: Potassium up to 3.3 this morning with scheduled replacement given. Will continue to monitor and replace as needed. (4) Influenza B: Code(s): J10.1 - Influenza due to other identified influenza virus with other respiratory manifestations Status: Acute Assessment and Plan: Positive for influenza B at [facility]. Tamiflu not initiated as symptoms present for 5 days on presentation. Currently no respiratory symptoms. Remains on room air. Chest x-ray as well as CT chest negative for acute changes. (5) Elevated troponin: Code(s): R79.89 - Other specified abnormal findings of blood chemistry Status: Acute Assessment and Plan: Cardiology consulted and appreciate input. Troponin levels mildly elevated and decreasing. Telemetry as noted above. Echocardiogram as noted above. (6) Abdominal pain: Qualifiers: Abdominal location: generalized Qualified Code(s): R10.84 - Generalized abdominal pain Code(s): R10.9 - Unspecified abdominal pain Status: Resolved Assessment and Plan: Nausea and vomiting have now subsided. No further abdominal pain. Urine culture negative with IV ceftriaxone discontinued. CT abdomen/pelvis with no acute changes as noted above. (7) DVT prophylaxis: Code(s): Z29.9 - Encounter for prophylactic measures, unspecified Status: Acute Assessment and Plan: SCDs. Time Spent With Patient Time with patient: 15 - 25 minutes Subjective Date/time seen: 08/20/19 13:01 Interval history: Date of Service: 08/20/2019. Admitted with severe hypertension, tachycardia, elevated troponin level, influenza B. Feeling better today. Did have significant elevation of blood pressure last evening. No current chest pain or shortness of breath. No headache or dizziness. No abdominal pain. Review of Systems Review of Systems: Narrative: Feeling better. Constitutional: Constitutional: Denies chills and Denies fever(s) ENT: Denies dysphagia Cardiovascula
--- NOTE | 2019-08-20 14:25 | PC.NURSE ---
This patient, Thu Duval, was transferred to [facility] on 08/20/19 at 1426. Personal belongings sent with patient. Belongings list checked and signed with receiving. Report given to ELVIE Villalba. Appropriate documentation sent with patient.
[2019-08-20] MEDS: hydrALAZINE HCL 20 MG/ML VIAL 10 MG IV PUSH (17:18)
[2019-08-21 06:00] VITALS: BP 123/66; PULSE 69; RESP 16; TEMP 36.8; O2SAT 100
[2019-08-21] MEDS: POTASSIUM CHLORIDE 20 MEQ TABLET.ER 40 MEQ PO (08:24)
[2019-08-21] MEDS: lisinopriL 10 MG TABLET PO (08:24)
[2019-08-21 08:25] VITALS: PULSE 69
[2019-08-21] MEDS: METOPROLOL SUCCINATE EXT REL 50 MG TABCR PO (08:25)
[2019-08-21 08:29] LABS: Blood Urea Nitrogen 13 mg/dL (7-17); Calcium 8.8 mg/dL (8.4-10.2); Carbon Dioxide 24 mmol/L (22-30); Chloride 102 mmol/L (98-107); Estimated Glomerular Filt Rate > 60; Glucose 92 mg/dL (65-105); Potassium 3.6 mmol/L (3.4-5.0); Sodium 134 mmol/L (137-145)
[2019-08-21 10:55] VITALS: BP 122/64; PULSE 68
--- NOTE | 2019-08-21 11:14 | PM.IMPN ---
Progress Note: A&P Assessment and Plan (1) Severe hypertension: Code(s): I10 - Essential (primary) hypertension Status: Acute Assessment and Plan: Last treated for hypertension approximately 2 years ago but improved with weight loss and exercise. Had difficulty on presentation with severely elevated blood pressure. Urine drug screen was positive for cannabinoids only. Blood pressure reviewed on 08/21/2019. Did have blood pressure spike yesterday afternoon for which she received IV metoprolol and IV hydralazine. Additional dose of oral metoprolol succinate ER was given. Blood pressure is controlled this morning before and after receiving medication. Also remains on lisinopril. COVID-19 testing negative. Metanephrines still pending. Retroperitoneal duplex with elevated peak systolic velocities in the bilateral renal arteries which could be consistent with greater than 50-60% stenosis however no evidence stenosis evident at the left or right renal arteries on contrast enhanced CT previously done. Echocardiogram with EF greater than 70%, grade 2 diastolic dysfunction, mild septal hypertrophy. Will discharge home today but will need to follow-up with her primary physician early next week. (2) Tachycardia: Code(s): R00.0 - Tachycardia, unspecified Status: Resolved Assessment and Plan: Now resolved. Echocardiogram as noted above. Spiral CT chest, abdomen, pelvis with couple of small right middle lobe nodules statistically most likely granulomas with recommendation for follow-up low-dose chest CT in 12 months but no acute findings. Metanephrines still pending as noted. TSH normal. Continue metoprolol as noted above. (3) Hypokalemia: Code(s): E87.6 - Hypokalemia Status: Acute Assessment and Plan: Potassium up to 3.6 today. Will send home with oral replacement and recheck as outpatient. (4) Influenza B: Code(s): J10.1 - Influenza due to other identified influenza virus with other respiratory manifestations Status: Acute Assessment and Plan: Positive for influenza B at [facility]. Tamiflu not initiated as symptoms present for 5 days on presentation. Remains without respiratory symptoms. Stable on room air. Chest x-ray as well as CT chest negative for acute changes. (5) Elevated troponin: Code(s): R79.89 - Other specified abnormal findings of blood chemistry Status: Acute Assessment and Plan: Cardiology consulted and appreciate input. Troponin levels mildly elevated and decreasing. Echocardiogram as noted above. (6) Abdominal pain: Qualifiers: Abdominal location: generalized Qualified Code(s): R10.84 - Generalized abdominal pain Code(s): R10.9 - Unspecified abdominal pain Status: Resolved Assessment and Plan: Nausea and vomiting have now subsided. No further abdominal pain. Urine culture negative with IV ceftriaxone discontinued. CT abdomen/pelvis with no acute changes as noted above. (7) DVT prophylaxis: Code(s): Z29.9 - Encounter for prophylactic measures, unspecified Status: Acute Assessment and Plan: SCDs. Time Spent With Patient Time with patient: 15 - 25 minutes Subjective Date/time seen: 08/21/19 11:14 Interval history: Date of Service: 08/21/2019. Admitted with severe hypertension, tachycardia, elevated troponin level, influenza B. Patient is feeling better today. No headache or dizziness. No chest pain. No shortness of breath. Did have 1 blood pressure spike after transfer to medical floor yesterday but none since. Wants to go home. Review of Systems Review of Systems: Narrative: Feeling better. Wants to go home. Constitutional: Constitutional: Denies chills and Denies fever(s) ENT: Denies dysphagia Cardiovascular: Cardiovascular: Denies chest pain Respiratory: Respiratory: Denies cough and Denies dyspnea Gastrointestinal: Joslyn
[2019-08-21 11:57] LABS: Metanephrine, Free 77 pg/mL (<=57); Normetanephrine, Free 390 pg/mL (<=148); Total, Free (MN + NMN) 467 pg/mL (<=205)
--- NOTE | 2019-08-21 17:20 | PM.DS ---
DS: Diagnosis Admitting Diagnosis Admitting Diagnosis: Other specified abnormal findings of blood chemistry Discharge Diagnosis (1) Severe hypertension: Code(s): I10 - Essential (primary) hypertension Status: Acute (2) Tachycardia: Code(s): R00.0 - Tachycardia, unspecified Status: Resolved (3) Hypokalemia: Code(s): E87.6 - Hypokalemia Status: Acute (4) Influenza B: Code(s): J10.1 - Influenza due to other identified influenza virus with other respiratory manifestations Status: Acute (5) Elevated troponin: Code(s): R79.89 - Other specified abnormal findings of blood chemistry Status: Acute (6) Abdominal pain: Qualifiers: Abdominal location: generalized Qualified Code(s): R10.84 - Generalized abdominal pain Code(s): R10.9 - Unspecified abdominal pain Status: Resolved DS: Summary Hospital Course Reason for hospitalization: Palpitations with elevated troponin level. Hospital Course: Date of Service of Discharge: August 21, 2019. History of Present Illness: Patient is a pleasant 49-year-old previous history of hypertension no longer on medication after weight loss and exercise who was a direct admission from the emergency department at [facility] for further evaluation of palpitations and elevated troponin level. Patient was in her usual state of health on Friday, August 14, 2019. On that day she did pick Macdonald mushrooms which she consumes later that evening. The following evening she began to feel poorly with diffuse abdominal pain, nausea, vomiting and mild diarrhea. She additionally noted fever, chills and sweats. She was seen on the afternoon of August 17, 2019 at her primary care provider's office with blood pressure elevated to 159/102 and pulse 126. She was given IV fluid rehydration for presumed dehydration also given Zofran. She had a follow-up appointment on the morning of presentation to the emergency room at which time she still is nauseated but had not vomited. She had not slept well due to restlessness and generally not feeling well. She also reported palpitations. Blood pressure in the office was 182/22 with pulse 113. As result, she was encouraged to go to the emergency department but declined. Instead she was sent for lab work as well as given prescriptions for antihypertensives. Troponin level was part of her laboratory working came back elevated at 0.21 which time she was directed to the emergency room. Patient did compliant and was evaluated in the emergency room. She was noted have significantly elevated blood pressure in addition to the elevated troponin. Chest x-ray was clear but influenza B screen was positive. COVID testing was initiated. Request was made for transfer to [facility] for cardiac evaluation. As result, she was admitted here as noted for further evaluation and treatment along with cardiology consultation. Course in Hospital: Patient was admitted to the IMU and initially placed on isolation while awaiting COVID-19 testing. Blood pressure continued to remain significantly elevated. IV metoprolol was ordered with IV hydralazine also available. She was seen in consultation by cardiology with EKG felt to not have any significant changes and elevated troponin not felt to be significant for acute coronary syndrome. Patient continued to be monitored with adjustment of medication for her blood pressure. Initially she was not given lisinopril while renal ultrasound duplex was performed did show elevated peak systolic velocities in the bilateral renal arteries which could be consistent with greater than 50-60% stenosis however no evidence of stenosis at the left or right renal arteries on contrast-enhanced CT done previously. Metanephrines were ordered but still pending at time of discharge. Echocardiogram was done with EF greater than 70%, grade 2 diastolic dysfunction and mild septal hypertroph
== END 2019-08-21 11:58 | disposition home or self-care (01) | DRG 305 ==
LOC: ANHICU 08-19 10:54 → ANHIMU 08-19 18:24 → ANH3MEDSUR 08-20 14:39
PROVIDERS: Physician Assistant; Admitting Provider Hospitalist; Visit Provider Hospitalist
DX: I10 Essential (primary) hypertension (principal); R79.89 Other specified abnormal findings of blood chemistry; R00.0 Tachycardia, unspecified; J10.1 Influenza due to other identified influenza virus with other respiratory manifestations; E87.6 Hypokalemia; Z20.828 Contact with and (suspected) exposure to other viral communicable diseases; Z87.891 Personal history of nicotine dependence; Q78.6 Multiple congenital exostoses; R01.1 Cardiac murmur, unspecified; E86.0 Dehydration; R10.84 Generalized abdominal pain
CPT/HCPCS: 36415; 70450; 71260; 74177; 80048; 80053; 82728; 83605; 83735; 83835; 83880; 84100; 84132; 84443; 84484; 85025; 85027; 86140; 87040; 93306; 93976; A9270; J0360; J0696; J2405; J3480; J7030; Q9967

== ENCOUNTER 2019-08-23 11:13 | Outpatient (CLI) | payer BC, SELFPAY ==
[2019-08-23 16:15] LABS: Blood Urea Nitrogen 14 mg/dL (7-18); Calcium 9.6 mg/dL (8.5-10.1); Carbon Dioxide 31 mmol/L (21-32); Estimated Glomerular Filt Rate > 60; Glucose 101 mg/dL (70-99)
[2019-08-23 17:40] LABS: Anion Gap 14.4 mmol/L (7-16); Chloride 102 mmol/L (98-108); Osmolality Calculated 296 mOsm/kg (285-295); Potassium 4.4 mmol/L (3.5-5.1); Sodium 143 mmol/L (136-145)
== END 2019-08-23 11:14 | disposition home or self-care (01) ==
LOC: CHSLAB 11:15
PROVIDERS: Hospitalist; PCP Nurse Practitioner Family; Visit Provider Nurse Practitioner Family
DX: E87.6 Hypokalemia (principal)
CPT/HCPCS: 36415; 80048

== ENCOUNTER 2020-01-31 06:59 | Outpatient (CLI) | payer BC, SELFPAY ==
--- NOTE | ~2020-01-31 | MM_ITS ---
EXAMINATION: MM screening purnima BI w maikel HISTORY: Screening TECHNIQUE: Craniocaudal and mediolateral oblique 3-D tomosynthesis images were obtained and synthetic 2-D images were generated. CAD analysis was submitted and interpreted. COMPARISON: 07/03/2016 BREAST PARENCHYMAL COMPOSITION: There are scattered areas of fibroglandular density. FINDINGS: There is no evidence of suspicious mass, calcification, or architectural distortion to sugg est malignancy in either breast. There has been no suspicious interval change. IMPRESSION: 1. No mammographic evidence of malignancy. 2. Recommend routine screening mammography in one year. BI-RADS Category 1: Negative Reviewed, dictated and finalized at location A.
== END 2020-01-31 07:00 | disposition home or self-care (01) ==
PROVIDERS: PCP Internal Medicine; Visit Provider Obstetrics & Gynecology
DX: Z12.31 Encounter for screening mammogram for malignant neoplasm of breast (principal)
CPT/HCPCS: 77063; 77067

== ENCOUNTER 2021-12-10 11:21 | Outpatient (CLI) | payer BC, SELFPAY ==
--- NOTE | ~2021-12-10 | CT_ITS ---
EXAMINATION: CT abdomen pelvis w con INDICATION: Abdominal pain TECHNIQUE: Computed tomographic images of the abdomen and pelvis were obtained after the administrati on of 100 cc of Omnipaque 350 intravenous contrast. The dose-length product (DLP) was 289.13 mGy-cm. Automated exposure control and iterative reconstruction technique were employed. COMPARISON: 08/18/2019 FINDINGS: A chronic nodule of the right middle lobe is consistent with old granulomatous disease. The heart size is normal. There is a 10 mm cyst in the right hepatic lobe. The spleen, pancreas, gallbla dder, and adrenal glands are normal. Hypoattenuating lesions in the left kidney, measuring up to 6 mm , are too small to characterize but likely represent cysts. The right kidney is unremarkable. No path ologically enlarged abdominal or pelvic lymph nodes are identified. There is no free intraperitoneal gas or evidence of bowel obstruction. The appendix is normal. IMPRESSION: 1. No CT correlate for the patient's symptoms. Reviewed, dictated and finalized at location A.
[2021-12-10 11:37] LABS: Hematocrit 43.6 % (35.0-49.0); Hemoglobin 14.7 g/dL (12.0-15.0); Immature Platelet Fraction Pct 2.1 % (1.0-7.0); Mean Corpuscular HGB Conc 33.7 g/dL (32.0-36.0); Mean Corpuscular Hemoglobin 30.2 pg (27.0-31.0); Mean Corpuscular Volume 89.7 fL (78.0-102.0); Mean Platelet Volume 9.8 fl (9.2-11.8); Platelet Count Result 590 K/mm3 (150-420); Red Blood Count 4.86 M/mm3 (4.20-5.40); Red Cell Distribution Width 12.6 % (11.6-14.4)
[2021-12-10 11:43] LABS: Add Urine Microscopic? YES; Appearance Urine Clear (Clear); Bilirubin Urine Negative (Negative); Blood Urine 3+ (Negative); Color Urine Yellow (Yellow); Glucose Urine UA Negative (Negative); Ketones Urine Trace (Negative); Leukocyte Esterase Ur Negative LEU/UL (Negative); Nitrate Urine Negative (Negative); Protein Urine 3+ (Negative); Specific Grav Ur 1.015 (1.010-1.020); Urobilinogen Urine 0.2 mg/dL (0.2-1.0); White Blood Count 24.3 K/mm3 (4.8-10.8); pH Urine 6.5 (5.0-8.0)
[2021-12-10 11:51] LABS: Alanine Aminotransferase 24 U/L (14-59); Albumin Level 3.9 g/dL (3.4-5.0); Alkaline Phosphatase 96 U/L (46-116); Amylase 92 U/L (25-115); Anion Gap 11 mmol/L (8-16); Aspartate Amino Transferase 57 U/L (15-37); Bilirubin,Total 0.4 mg/dL (0.00-1.00); Blood Urea Nitrogen 21 mg/dL (7-18); Calcium 9.3 mg/dL (8.5-10.1); Carbon Dioxide 25 mmol/L (21-32); Chloride 99 mmol/L (98-108); Estimated Glomerular Filt Rate > 60; Glucose 137 mg/dL (70-99); Lipase 72 U/L (73-393); Osmolality Calculated 285 mOsm/kg (285-295); Sodium 135 mmol/L (136-145); Total Protein 7.9 g/dL (6.4-8.2)
[2021-12-10 11:54] LABS: Bacteria Urine 1+ /hpf; Squamous Epithelial Cell Urine Few /hpf (Few); WBC Urine None seen /hpf (0-3)
[2021-12-10 11:59] LABS: Band Neutrophils Percent 1 % (0-6); Basophils Percent Manual 0 % (0-1); Eosinophils Percent Manual 0 % (1-6); Lymphocytes Absolute Manual 1.45 K/mm3 (1.1-4.5); Lymphocytes Percent Manual 6 % (18-44); Monocytes Absolute Manual 0.72 K/mm3 (0.1-0.90); Monocytes Percent Manual 3 % (3-9); Neutrophils Absolute Manual 22.11 K/mm3 (1.7-7.2); Neutrophils Percent Manual 90 % (46-73); Platelet Estimate Increased (Adequate); Total Cells Counted 100
== END 2021-12-10 11:22 | disposition home or self-care (01) ==
PROVIDERS: PCP Internal Medicine; Visit Provider Nurse Practitioner Family
DX: R10.9 Unspecified abdominal pain (principal); D72.829 Elevated white blood cell count, unspecified; R11.2 Nausea with vomiting, unspecified
CPT/HCPCS: 36415; 74177; 80053; 81001; 82150; 83690; 85025; 85055; Q9967

== ENCOUNTER 2021-12-24 14:15 | Outpatient (CLI) | payer BC, SELFPAY ==
[2021-12-24 14:27] LABS: Basophils Absolute Auto 0.01 K/mm3 (0.00-0.10); Basophils Percent Auto 0.1 % (0.0-1.0); Eosinophils Absolute Auto 0.14 K/mm3 (0.02-0.50); Eosinophils Percent Auto 1.4 % (1.0-6.0); Hematocrit 35.2 % (35.0-49.0); Hemoglobin 11.8 g/dL (12.0-15.0); Immature Granulocyte Absolute 0.03 K/mm3 (0.00-0.00); Immature Granulocyte Percent A 0.3 % (0.0-0.0); Lymphocytes Absolute Auto 3.12 K/mm3 (1.10-4.50); Lymphocytes Percent Auto 31.8 % (18.0-42.0); Mean Corpuscular HGB Conc 33.5 g/dL (32.0-36.0); Mean Corpuscular Hemoglobin 31.3 pg (27.0-31.0); Mean Corpuscular Volume 93.4 fL (78.0-102.0); Mean Platelet Volume 9.2 fl (9.2-11.8); Monocytes Absolute Auto 0.65 K/mm3 (0.10-0.90); Monocytes Percent Auto 6.6 % (2.0-11.0); Neutrophils Absolute Auto 5.9 K/mm3 (1.7-7.2); Neutrophils Percent Auto 59.8 % (50.0-70.0); Platelet Count Result 465 K/mm3 (150-420); Red Blood Count 3.77 M/mm3 (4.20-5.40); Red Cell Distribution Width 12.9 % (11.6-14.4); White Blood Count 9.8 K/mm3 (4.8-10.8)
[2021-12-24 14:33] LABS: Appearance Urine Clear (Clear); Bilirubin Urine Negative (Negative); Color Urine Yellow (Yellow); Glucose Urine UA Negative (Negative); Ketones Urine Trace (Negative); Leukocyte Esterase Ur Negative (Negative); Nitrate Urine Negative (Negative); Protein Urine Negative (Negative); Specific Grav Ur 1.015 (1.010-1.020); Urobilinogen Urine 0.2 mg/dL (0.2-1.0); pH Urine 6.5 (5.0-8.0)
[2021-12-24 14:45] LABS: Add Urine Microscopic? YES; Blood Urine Trace-Intact (Negative); WBC Urine 0-3 /hpf (0-3)
[2021-12-24 14:46] LABS: Amorphous Sediment Urine Few; Bacteria Urine Trace /hpf; Squamous Epithelial Cell Urine Few /hpf (Few)
[2021-12-24 14:59] LABS: Alanine Aminotransferase 20 U/L (14-59); Albumin Level 3.3 g/dL (3.4-5.0); Alkaline Phosphatase 72 U/L (46-116); Anion Gap 6 mmol/L (8-16); Aspartate Amino Transferase 20 U/L (15-37); Bilirubin,Total 0.2 mg/dL (0.00-1.00); Blood Urea Nitrogen 17 mg/dL (7-18); Calcium 8.9 mg/dL (8.5-10.1); Carbon Dioxide 30 mmol/L (21-32); Chloride 105 mmol/L (98-108); Estimated Glomerular Filt Rate > 60; Glucose 93 mg/dL (70-99); Osmolality Calculated 293 mOsm/kg (285-295); Potassium 3.8 mmol/L (3.5-5.1); Sodium 141 mmol/L (136-145); Total Protein 6.6 g/dL (6.4-8.2)
== END 2021-12-24 14:16 | disposition home or self-care (01) ==
LOC: CHSLAB 14:17
PROVIDERS: PCP Internal Medicine; Visit Provider Internal Medicine
DX: E86.0 Dehydration (principal); I10 Essential (primary) hypertension
CPT/HCPCS: 36415; 80053; 81001; 85025

== ENCOUNTER 2022-12-11 08:50 | Outpatient (CLI) | payer BC, SELFPAY ==
--- NOTE | ~2022-12-11 | MM_ITS ---
EXAMINATION: MM screening purnima BI w maikel HISTORY: Screening TECHNIQUE: Craniocaudal and mediolateral oblique 3-D tomosynthesis images were obtained and synthetic 2-D images were generated. CAD analysis was submitted and interpreted. COMPARISON: Comparison to multiple prior studies sequentially, with oldest reviewed study dated 08/2019. BREAST PARENCHYMAL COMPOSITION: The breasts are almost entirely fatty. FINDINGS: There is no evidence of suspicious mass, calcification, or architectural distortion to sugg est malignancy in either breast. There has been no suspicious interval change. IMPRESSION: 1. No mammographic evidence of malignancy. 2. Recommend routine screening mammography in one year. BI-RADS Category 1: Negative Reviewed, dictated and finalized at location A.
== END 2022-12-11 08:51 | disposition home or self-care (01) ==
LOC: CHSIMG 08:51
PROVIDERS: PCP Internal Medicine; Visit Provider Obstetrics & Gynecology
DX: Z12.31 Encounter for screening mammogram for malignant neoplasm of breast (principal)
CPT/HCPCS: 77063; 77067

== ENCOUNTER 2024-01-26 10:57 | Observation (INO) | payer BC, SELFPAY ==
[2024-01-26] VITALS (32 sets, daily range): BP systolic 124–208; BP diastolic 68–101; PULSE 75–126; RESP 8–22; TEMP 35.5–36.9; O2SAT 92–100; BMI 26.6
--- NOTE | 2024-01-26 11:13 | ED.GENADULT ---
HPI - General Adult General Chief complaint: Nausea/Vomiting/Diarrhea Stated complaint: covid, abd pain Time Seen by Provider: 01/26/24 10:58 History of Present Illness HPI narrative: Thu is a 53F with a PMH of HTN, nicotine dependence and an unspecified bone disorder that reported to the ED form her PCP office. She was on a cruise a few days ago and became very nauseated and vomited. She was found to be hypokalemic, and dehydrated. She was improving but came home and started vomiting. She was at the PCP office where she endorsed chest pain, nausea, and was found to be COVID positive. She now reports that her whole body hurts, she is fatigued. Related Data Home Medications Medication Instructions Recorded Confirmed verapamil 180 mg tablet,extended 180 mg PO DAILY 01/26/24 01/26/24 release Allergies Allergy/AdvReac Type Severity Reaction Status Date / Time No Known Allergies Allergy Unverified 01/26/24 11:15 Review of Systems Review of Systems: All systems reviewed & are unremarkable except as noted in HPI and below [facility] Past Medical History Medical History (Updated 01/26/24 @ 13:25 by Haim Lechuga DO) Abdominal pain DVT prophylaxis Elevated troponin Hemorrhoids Hereditary multiple exostosis Hypertension Influenza B Kidney stones At age [age] years old. Nausea vomiting and diarrhea Nicotine dependence in remission Tachycardia Uncontrolled hypertension Surgical History Surgical History (System 01/03/21 @ 16:28 by Robin Porras) H/O hand surgery Has had multiple surgeries on her hands and other extremities because of her hereditary multiple exostosis. History of X2. Family History Family History (System 01/03/21 @ 16:28 by Robin Porras) Mother Hypertension Mild dementia Father Hypertension Social History Social History (System 01/03/21 @ 16:28 by Robin Porras) Social History: The patient is and lives in [place] with her . They have 2 children. 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 She smoked 1 pack of cigarettes per day for about 35 years and quit in 2018. She denies significant alcohol use. She uses marijuana on occasion. Her , Erick, is her surrogate decision maker. She wishes to be a full code. Smoking packs per day: 1 Smoking cigarettes per day: 20.0 Years smoked: 35 Smoking pack-years: 35.00 Smoking status: Former smoker Tobacco type: cigarettes Smoking end date: 06/26/17 Alcohol intake: never Substance use: current Substance use type: marijuana Do You Feel Safe in your Home?: Yes Lack of Transportation: No Lack of Food: Never True Current Housing: I Have Housing Concerned About Future Housing: No Difficulty Paying Gas/Electric Bills: No Difficulty Paying for Meds: No Currently Unemployed: No Education: Associate Degree Difficulty w/ Childcare or Family Care: No Living arrangements: with family Gender identity (if verbalized by the patient): Female Spiritual care concerns: No Agree to blood products: Yes Exam Const: General: cooperative, comfortable, no acute distress, well developed, alert, awake and Physically active Orientation/consciousness: oriented to person, oriented to place and oriented to time HENMT: Head: normal to inspection, normocephalic and atraumatic Ears: hearing grossly normal bilaterally and external ears normal Face/Nose/Sinus: Normal external nose present Other: dry mucous membranes Eyes: General: appearance normal, both eyes and all related structures Periorbital: periorbital findings normal Sclera: sclerae normal Pupils: Equal, round and reactive pupils present Neck: Neck: normal visual inspection Chest: Chest palpation & inspection: normal inspection of the chest Resp: Effort & Inspection: normal respiratory effort, able to speak in complete sentences and no respiratory distress Auscultation: clear to auscultation bilaterally Cardio:
--- NOTE | 2024-01-26 11:16 | ECG_ITS ---
Test Date: 2024-01-26 11:13:46 Measurements Intervals [place] Rate: 90 P: 67 WY: 140 QRS: -17 QRSD: 89 T: 59 QT: 393 QTc: 481 Interpretive Statements SINUS RHYTHM POSSIBLE RIGHT ATRIAL ENLARGEMEN BORDERLINE ECG No previous ECG available for comparison Electronically Signed On 01-26-2024 13:44:24 CDT by Johnathan Fatima D.O.
[2024-01-26 11:42] LABS: Add Urine Microscopic? YES; Appearance Urine Clear (Clear); Bilirubin Urine Negative (Negative); Blood Urine 2+ (Negative); Color Urine Light Yellow (Yellow); Glucose Urine UA Negative (Negative); Ketones Urine Negative (Negative); Leukocyte Esterase Ur Negative LEU/UL (Negative); Nitrate Urine Negative (Negative); Protein Urine Negative (Negative); Urobilinogen Urine 0.2 mg/dL (0.2-1.0)
[2024-01-26] MEDS: SODIUM CHLORIDE 0.9% IV 1,000 ML 999 ML IV CONT (11:42)
[2024-01-26] MEDS: ONDANSETRON INJ 4 MG/2 ML VIAL IV PUSH ×2 (11:42→17:12)
[2024-01-26] MEDS: METOPROLOL TARTRATE INJ 5 MG/5 ML VIAL IV PUSH ×2 (11:43→13:03)
[2024-01-26 11:48] LABS: Amphetamine Screen Urine Negative (Negative); Barbiturate Screen Urine Negative (Negative); Benzodiazepines Screen Urine Negative (Negative); Cannabinoid Screen Urine Positive (Negative); Cocaine Screen Urine Negative (Negative); Methadone Screen Urine Negative (Negative); Opiate Screen Urine Negative (Negative); Phencyclidine Screen Urine Negative (Negative)
[2024-01-26 11:56] LABS: Basophils Absolute Auto 0.02 K/mm3 (0.00-0.10); Basophils Percent Auto 0.1 % (0.0-1.0); Hemoglobin 11.9 g/dL (12.0-15.0); Immature Granulocyte Absolute 0.13 K/mm3 (0.00-0.00); Immature Granulocyte Percent A 0.9 % (0.0-0.0); Immature Platelet Fraction Pct 1.7 % (1.0-7.0); Lymphocytes Absolute Auto 1.31 K/mm3 (1.10-4.50); Lymphocytes Percent Auto 8.7 % (18.0-42.0); Mean Corpuscular Hemoglobin 29.9 pg (27.0-31.0); Mean Corpuscular Volume 87.9 fL (78.0-102.0); Mean Platelet Volume 8.9 fl (9.2-11.8); Monocytes Absolute Auto 0.36 K/mm3 (0.10-0.90); Monocytes Percent Auto 2.4 % (2.0-11.0); Neutrophils Absolute Auto 13.23 K/mm3 (1.70-7.20); Neutrophils Percent Auto 87.9 % (50.0-70.0); Platelet Count Result 704 K/mm3 (150-420); Red Blood Count 3.98 M/mm3 (4.20-5.40); Red Cell Distribution Width 13.2 % (11.6-14.4); White Blood Count 15.1 K/mm3 (4.8-10.8)
[2024-01-26 11:57] LABS: Squamous Epithelial Cell Urine Few /hpf (Few); WBC Urine None seen /hpf (0-3)
[2024-01-26 11:58] LABS: Bacteria Urine Trace /hpf
[2024-01-26 12:07] LABS: INR 0.9
[2024-01-26 12:14] LABS: Lactic Acid Reflex 1.3 mmol/L (0.4-2.0)
[2024-01-26 12:16] LABS: CRP 2.9 mg/dL (0.0-0.9); Lipase 28 U/L (16-77); Magnesium 1.8 mg/dL (1.8-2.4); Troponin I 53.9 ng/L (0.00-60.4)
[2024-01-26 12:19] LABS: Alanine Aminotransferase 28 U/L (14-59); Alkaline Phosphatase 82 U/L (46-116); Anion Gap 10 mmol/L (4-12); Aspartate Amino Transferase 22 U/L (15-37); Bilirubin,Total 0.2 mg/dL (0.00-1.00); Blood Urea Nitrogen 13 mg/dL (7-18); Calcium 8.7 mg/dL (8.5-10.1); Carbon Dioxide 29 mmol/L (21-32); Chloride 101 mmol/L (98-108); Estimated Glomerular Filt Rate > 60; Glucose 160 mg/dL (70-99); Osmolality Calculated 293 mOsm/kg (285-295); Potassium 2.8 mmol/L (3.5-5.1); Sodium 140 mmol/L (136-145); Total Protein 7.1 g/dL (6.4-8.2)
[2024-01-26 12:22] LABS: Thyroid Stimulating Hormone 0.67 uIU/mL (0.36-3.74)
[2024-01-26 12:39] LABS: NT Pro B Type Natriuretic Pept 781 pg/mL (0-125)
[2024-01-26 12:42] LABS: Influenza A QL RT-PCR Negative (Negative); Influenza B QL RT-PCR Negative (Negative); RSV RNA, RT-PCR Negative (Negative); SARS-CoV-2 RNA PCR Negative (Negative)
[2024-01-26] MEDS: KCL 20 MEQ/SW 100 ML 100 ML 150 MEQ IVPB (13:03)
--- NOTE | 2024-01-26 13:55 | ADMGEN ---
This patient, Thu Duval, was admitted to 2nd Floor Room 208-2. Patient/family oriented to hospital policies and general routines including ID bracelet, bed and alarms, visiting hours, pain management, procedures, bathroom and other care routines, personal items, smoking policy, room service/diet, and visiting hours. Information on how to activate the Rapid Response Team has been discussed. Patient/Family are encouraged to report perceived risks to care and to ask questions if they do not understand what they are told or what they should do.
[2024-01-26] MEDS: SODIUM CHLORIDE 0.9% IV 250 ML 100 ML IV CONT (14:15)
[2024-01-26] MEDS: hydrALAZINE HCL 20 MG/ML VIAL IV PUSH (15:13)
[2024-01-26] MEDS: KCL 20MEQ/0.9% SOD CHL 1,000 ML 100 ML IV CONT (15:14)
[2024-01-26] MEDS: VERAPAMIL HCL 180 MG TABLET ER PO (16:45)
[2024-01-26 17:41] LABS: Troponin I 101.2 ng/L (0.00-60.4)
--- NOTE | 2024-01-26 17:43 | PC.NURSE ---
Lynda Joaquin, Hospitalist, notified of patient's current Troponin level being 101.2.
--- NOTE | 2024-01-26 19:00 | PC.NURSE ---
Patient having runs of tachycardia. SANTANA Sterling spoke with, N.O. to repeat EKG.
--- NOTE | 2024-01-26 19:50 | ECG_ITS ---
Test Date: 2024-01-26 19:59:29 Measurements Intervals [place] Rate: 106 P: 67 WY: 192 QRS: -33 QRSD: 84 T: 34 QT: 384 QTc: 511 Interpretive Statements SINUS TACHYCARDIA LEFT AXIS DEVIATION [QRS AXIS < -30] ABNORMALITY IN II/aVF] ABNORMAL ECG Compared to ECG 01/26/2024 11:13:46 Left-axis deviation now present Sinus rhythm no longer present Electronically Signed On 01-28-2024 13:44:08 CDT by Jose Alba M.D.
[2024-01-26] MEDS: PANTOPRAZOLE SODIUM IV 40 MG VIAL IV PUSH (20:33)
[2024-01-26 23:26] LABS: Troponin I 122.3 ng/L (0.00-60.4)
[2024-01-27] VITALS: PULSE 94
[2024-01-27] MEDS: KCL 20MEQ/0.9% SOD CHL 1,000 ML 100 ML IV CONT (01:07)
[2024-01-27 04:00] VITALS: BP 130/68; PULSE 89; PULSE 99; RESP 18; TEMP 36.5; O2SAT 96
[2024-01-27 05:45] LABS: Basophils Absolute Auto 0.01 K/mm3 (0.00-0.10); Basophils Percent Auto 0.1 % (0.0-1.0); Eosinophils Absolute Auto 0.09 K/mm3 (0.02-0.50); Eosinophils Percent Auto 0.6 % (1.0-6.0); Hematocrit 30.3 % (35.0-49.0); Hemoglobin 10.1 g/dL (12.0-15.0); Immature Granulocyte Absolute 0.11 K/mm3 (0.00-0.00); Immature Granulocyte Percent A 0.7 % (0.0-0.0); Immature Platelet Fraction Pct 1.2 % (1.0-7.0); Lymphocytes Absolute Auto 4.44 K/mm3 (1.10-4.50); Lymphocytes Percent Auto 29.6 % (18.0-42.0); Mean Corpuscular HGB Conc 33.3 g/dL (32-36); Mean Corpuscular Hemoglobin 29.7 pg (27.0-31.0); Mean Corpuscular Volume 89.1 fL (78.0-102.0); Mean Platelet Volume 8.7 fl (9.2-11.8); Monocytes Absolute Auto 0.96 K/mm3 (0.10-0.90); Monocytes Percent Auto 6.4 % (2.0-11.0); Neutrophils Absolute Auto 9.38 K/mm3 (1.70-7.20); Neutrophils Percent Auto 62.6 % (50.0-70.0); Platelet Count Result 618 K/mm3 (150-420); Red Cell Distribution Width 13.7 % (11.6-14.4)
[2024-01-27 06:02] LABS: Alanine Aminotransferase 20 U/L (14-59); Albumin Level 2.2 g/dL (3.4-5.0); Alkaline Phosphatase 61 U/L (46-116); Anion Gap 10 mmol/L (4-12); Aspartate Amino Transferase 14 U/L (15-37); Bilirubin,Total 0.2 mg/dL (0.00-1.00); Blood Urea Nitrogen 6 mg/dL (7-18); Calcium 7.8 mg/dL (8.5-10.1); Carbon Dioxide 25 mmol/L (21-32); Chloride 104 mmol/L (98-108); Estimated Glomerular Filt Rate > 60; Glucose 125 mg/dL (70-99); Magnesium 1.6 mg/dL (1.8-2.4); Osmolality Calculated 286 mOsm/kg (285-295); Potassium 2.8 mmol/L (3.5-5.1); Sodium 139 mmol/L (136-145); Total Protein 5.5 g/dL (6.4-8.2)
[2024-01-27 07:54] LABS: Troponin I 73.5 ng/L (0.00-60.4)
[2024-01-27 08:00] VITALS: BP 110/68; PULSE 84; PULSE 91; RESP 17; TEMP 36.3; O2SAT 99
[2024-01-27] MEDS: MAGNESIUM SULF 2 GM/WATER 50ML 2 GM/50 ML BAG IVPB (08:56)
[2024-01-27] MEDS: POTASSIUM CHLORIDE 20 MEQ ER TABLET 40 MEQ PO ×2 (08:57→13:26)
[2024-01-27] MEDS: PANTOPRAZOLE SODIUM IV 40 MG VIAL IV PUSH (08:57)
[2024-01-27 12:00] VITALS: PULSE 86
[2024-01-27 12:51] LABS: Anion Gap 10 mmol/L (4-12); Blood Urea Nitrogen 5 mg/dL (7-18); Calcium 8.1 mg/dL (8.5-10.1); Carbon Dioxide 25 mmol/L (21-32); Chloride 104 mmol/L (98-108); Estimated Glomerular Filt Rate > 60; Glucose 125 mg/dL (70-99); Osmolality Calculated 286 mOsm/kg (285-295); Potassium 3.2 mmol/L (3.5-5.1); Sodium 139 mmol/L (136-145)
--- NOTE | 2024-01-27 13:20 | PM.SD2 ---
Same Day Admit/Disch: HPI History of Present Illness Chief complaint: hypokaemia hyperensive urgency Narrative: Thu Duval is a 53 year old female who presented to the emergency department with complaints of nausea and vomiting. In the emergency department patient to hypokalemia and hypo magnesium as being in a hypertensive crisis. patient was admitted to the medical cardiac for further evaluation treatment. patient denied any chest pain, shortness a breath abdominal fever chills however did endorse continuing nausea and vomiting. [facility] Past Medical History Medical History Abdominal pain DVT prophylaxis Elevated troponin Hemorrhoids Hereditary multiple exostosis Hypertension Influenza B Kidney stones At age [age] years old. Nausea vomiting and diarrhea Nicotine dependence in remission Tachycardia Uncontrolled hypertension Surgical History Surgical History H/O hand surgery Has had multiple surgeries on her hands and other extremities because of her hereditary multiple exostosis. History of X2. Family History Family History Mother Hypertension Mild dementia Father Hypertension Social History Social History Social History: The patient is and lives in [place] with her . They have 2 children. 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 She smoked 1 pack of cigarettes per day for about 35 years and quit in 2018. She denies significant alcohol use. She uses marijuana on occasion. Her , Erick, is her surrogate decision maker. She wishes to be a full code. Smoking packs per day: 1 Smoking cigarettes per day: 20.0 Years smoked: 35 Smoking pack-years: 35.00 Smoking status: Former smoker Tobacco type: cigarettes Smoking end date: 06/26/17 Alcohol intake: never Substance use: current Substance use type: marijuana Do You Feel Safe in your Home?: Yes Lack of Transportation: No Lack of Food: Never True Current Housing: I Have Housing Concerned About Future Housing: No Difficulty Paying Gas/Electric Bills: No Difficulty Paying for Meds: No Currently Unemployed: No Education: Associate Degree Difficulty w/ Childcare or Family Care: No Living arrangements: with family Gender identity (if verbalized by the patient): Female Spiritual care concerns: No Agree to blood products: Yes Same Day Admit/Disch: Med Pre-admit Medications Home Medications Medication Instructions Recorded Confirmed Type verapamil 180 mg tablet,extended 180 mg PO DAILY 01/26/24 01/26/24 History release ondansetron 8 mg disintegrating 8 mg PO Q8H PRN nausea and 01/27/24 Rx tablet vomiting #30 tabs pantoprazole 40 mg tablet,delayed 40 mg PO QAM #14 tabs 01/27/24 Rx release potassium chloride 20 mEq 20 meq PO BID #10 tabs 01/27/24 Rx tablet,extended release(part/cryst) (Edwina Caldera) Review of Systems Review of Systems All systems reviewed & are unremarkable except as noted in HPI and below Exam Narrative: Physical Exam: GENERAL: Pleasant Alert and oriented x 3 female. No acute distress. EYES: PERRLA. HEENT: Moist mucous membranes. LUNGS: Clear to auscultation bilaterally. No accessory muscle use. CARDIOVASCULAR: Regular rate and rhythm. No murmur. S1-S2 ABDOMEN: Soft, non tenderness and non-distended. No palpable masses. EXTREMITIES: No edema. Non-tender SKIN: No rashes or lesions. Skin warm, dry. NEUROLOGIC: No focal neurological deficits. CN II-XII grossly intact PSYCHIATRIC: Appropriate mood and affect. Good judgement and insight. DS: Data Data Completed and Pending Labs on day of discharge: Labs from last 24 hours 01/27/24 01/27/24 01/26/24 12:23
--- NOTE | 2024-01-27 14:20 | PC.NURSE ---
Discharge instructions reviewed with patient and her . All questions answered. Pt ambulated self for discharge.
--- NOTE | 2024-01-30 08:55 | PC.NURSE ---
Discharge call back complete, feeling better, no questions regarding dc instructions
== END 2024-01-27 14:20 | disposition home or self-care (01) ==
LOC: CHSED 13:25 → CHS2ND 13:48
PROVIDERS: Nurse Practitioner Family; Admitting Provider Internal Medicine; Emergency Provider Family Medicine; PCP Internal Medicine; Visit Provider Internal Medicine
DX: I16.9 Hypertensive crisis, unspecified (principal); I10 Essential (primary) hypertension; E86.0 Dehydration; E87.6 Hypokalemia; E83.42 Hypomagnesemia; Z87.891 Personal history of nicotine dependence; Z20.822 Contact with and (suspected) exposure to COVID-19
CPT/HCPCS: 36415; 80048; 80053; 80307; 81001; 83605; 83690; 83735; 83880; 84443; 84484; 85025; 85055; 85610; 86140; 87637; 93005; 96361; 96365; 96366; 96367; 96375; 96376; 99285; A9270; G0378; J0360; J2405; J2470; J3475; J3480; J7030; J7050

== ENCOUNTER 2024-04-12 08:01 | Outpatient (CLI) | payer BC, SELFPAY ==
--- NOTE | ~2024-04-12 | MM_ITS ---
EXAMINATION: MM screening purnima BI w maikel HISTORY: Screening TECHNIQUE: Craniocaudal and mediolateral oblique 3-D tomosynthesis images were obtained and synthetic 2-D images were generated. CAD analysis was submitted and interpreted. COMPARISON: Comparison to multiple prior studies sequentially, with oldest reviewed study dated 11/2016. BREAST PARENCHYMAL COMPOSITION: Not Dense. The breasts are almost entirely fatty. FINDINGS: There is no evidence of suspicious mass, calcification, or architectural distortion to sugg est malignancy in either breast. There has been no suspicious interval change. IMPRESSION: 1. No mammographic evidence of malignancy. 2. Recommend routine screening mammography in one year. BI-RADS Category 1: Negative Reviewed, dictated and finalized at location B. [place] SHIFT MANAGER
--- OUTSIDE RECORDS SUMMARY | 2024-04-18 02:50 | XMS_ITS | Encounter Summary ---
Author Organization [facility] Address [address] [place] [address]. [place], [place] [phone] [place], [place] [id number] Care Team Providers Care Associate Property Manager Name Role Phone Unavailable Primary Care Provider Unavailabl e Encounter Details Date Type Department Care Team (Late st Contact Info) Description 04/02/1999 Abstract [facility] [address] [place] [address] , Generic Conversion, Social History Tobacco Use Types Packs/Day Years Used Date Smoking Tobacco: Never Assessed Comments Unknown Sex and Gender Information Value Date Recorded Sex Assigned at Not on file Legal Sex Female 7:34 PM CDT Gender Identity Not on file Sexual Orientation Not on file documented as of this encounter Plan of Treatment Not on file documented as of this encounter Visit Diagnoses Not on filedocumented in this encounter
--- OUTSIDE RECORDS SUMMARY | 2024-04-18 02:50 | XMS_ITS | Encounter Summary ---
Author Organization [facility] Address [address] [place] [address]. [place] [address] [place] [address] Care Team Providers Care Relief Master Name Role Phone Unavailable Primary Care Provider Unavailabl e Encounter Details Date Type Department Care Team (Late st Contact Info) Description 07/05/2016 Abstract [facility] [address] [place] [address] Steph Gutierrez MD [address] [place] [address] Social History Tobacco Use Types Packs/Day Years Used Date Smoking Tobacco: Never Assessed Comments Unknown Sex and Gender Information Value Date Recorded Sex Assigned at Not on file Legal Sex Female 7:34 PM CDT Gender Identity Not on file Sexual Orientation Not on file documented as of this encounter Plan of Treatment Not on file documented as of this encounter Visit Diagnoses Diagnosis Breast lump Lump or mass in breast documented in this encounter
--- OUTSIDE RECORDS SUMMARY | 2024-04-18 02:50 | XMS_ITS | Encounter Summary ---
Author Organization [facility] Address [address] [place] [address]. [place], [place] [phone] [place], [place] [id number] Care Team Providers Care Cq Developer Name Role Phone Unavailable Primary Care Provider Unavailabl e Encounter Details Date Type Department Care Team (Late st Contact Info) Description 01/14/1996 Abstract [facility] [address] [place] [address] , Generic Conversion, Social History Tobacco Use [...]
--- OUTSIDE RECORDS SUMMARY | 2024-04-18 02:50 | XMS_ITS | Encounter Summary ---
Author Organization [facility] Address [address] [place] [address]. [place], [place] [address] [place], [place] [phone] Care Team Providers Care Product Responsibility Liaison Name Role Phone Unavailable Primary Care Provider Unavailabl e Encounter Details Date Type Department Care Team (Late st Contact Info) Description 03/29/1999 Abstract [facility] [address] [place] [address] , Generic Conversion, Social History Tobacco Use [...]
--- OUTSIDE RECORDS SUMMARY | 2024-04-18 02:50 | XMS_ITS | Encounter Summary ---
Author Organization [facility] Address [address] [place] [address]. [place], [place] [address] [place], [place] [phone] Care Team Providers Care Research Staff Member Name Role Phone Unavailable Primary Care Provider Unavailabl e Encounter Details Date Type Department Care Team (Late st Contact Info) Description 04/12/1999 Abstract [facility] [address] [place] [address] , Generic Conversion, Social History Tobacco Use [...]
--- OUTSIDE RECORDS SUMMARY | 2024-04-18 02:50 | XMS_ITS | Encounter Summary ---
Author Organization [facility] Address [address] [place] [address]. [place], [place] [address] [place], [place] [phone] Care Team Providers Care Line Erector Apprentice Name Role Phone Unavailable Primary Care Provider Unavailabl e Encounter Details Date Type Department Care Team (Late st Contact Info) Description 12/27/1995 Abstract [facility] [address] [place] [address] , Generic Conversion, Social History Tobacco Use [...]
--- OUTSIDE RECORDS SUMMARY | 2024-04-18 02:50 | XMS_ITS | Encounter Summary ---
Author Organization [facility] Address [address] [place] [address]. [place], [place] [address] [place], [place] [phone] Care Team Providers Care Telephone Directory Deliverer Name Role Phone Unavailable Primary Care Provider Unavailabl e Encounter Details Date Type Department Care Team (Late st Contact Info) Description 04/12/1999 Abstract [facility] [address] [place] [address] , Generic Conversion, Social History Tobacco Use [...]
--- OUTSIDE RECORDS SUMMARY | 2024-04-18 02:50 | XMS_ITS | Encounter Summary ---
Author Organization [facility] Address [address] [place] [address]. [place], [place] [phone] [place] [address] Care Team Providers Care V Belt Curer Name Role Phone Unavailable Primary Care Provider Unavailabl e Encounter Details Date Type Department Care Team (Late st Contact Info) Description 09/26/2009 Abstract [facility] [address] [facility] [place] [address] Jazzmine Sevilla MD Social History Tobacco Use Types Packs/Day Years Used Date Smoking Tobacco: Never Assessed Comments Unknown Sex and Gender Information Value Date Recorded Sex Assigned at Not on file Legal Sex Female 7:34 PM CDT Gender Identity Not on file Sexual Orientation Not on file documented as of this encounter Plan of Treatment Not on file documented as of this encounter Visit Diagnoses Diagnosis Other and unspecified ovarian cyst documented in this encounter
--- OUTSIDE RECORDS SUMMARY | 2024-04-18 02:50 | XMS_ITS | Encounter Summary ---
Author Organization [facility] Address [address] [place] [address]. [id number] [place], [place] [phone] Care Team Providers Care Draftsperson Name Role Phone Unavailable Primary Care Provider Unavailabl e Encounter Details Date Type Department Care Team (Late st Contact Info) Description 04/09/1999 Abstract [facility] [address] [place] [address] , Generic Conversion, Social History Tobacco Use [...]
--- OUTSIDE RECORDS SUMMARY | 2024-04-18 02:50 | XMS_ITS | Encounter Summary ---
Author Organization [facility] Address [address] [place] [address]. [place], [place] [address] [place], [place] [phone] Care Team Providers Care Laborer Operator Name Role Phone Unavailable Primary Care Provider Unavailabl e Encounter Details Date Type Department Care Team (Late st Contact Info) Description 01/02/1996 Abstract [facility] [address] [place] [address] , Generic Conversion, Social History Tobacco Use [...]
--- OUTSIDE RECORDS SUMMARY | 2024-04-18 02:50 | XMS_ITS | Encounter Summary ---
Author Organization [facility] Address [address] [place] [address]. [place], [place] [phone] [place], [place] [phone] Care Team Providers Care Straight Knife Machine Cutter Name Role Phone Unavailable Primary Care Provider Unavailabl e Encounter Details Date Type Department Care Team (Late st Contact Info) Description 12/09/1997 Abstract [facility] [address] [place] [address] , Generic Conversion, Social History Tobacco Use [...]
--- OUTSIDE RECORDS SUMMARY | 2024-04-18 02:50 | XMS_ITS | Encounter Summary ---
Author Organization [facility] Address [address] [place] [address]. [place], [place] [address] [place], [place] [phone] Care Team Providers Care Retirement Officer Name Role Phone Unavailable Primary Care Provider Unavailabl e Encounter Details Date Type Department Care Team (Late st Contact Info) Description 03/23/1999 Abstract [facility] [address] [place] [address] , Generic Conversion, Social History Tobacco Use [...]
--- OUTSIDE RECORDS SUMMARY | 2024-04-18 02:50 | XMS_ITS | Encounter Summary ---
Author Organization [facility] Address [address] [place] [address]. [place], [place] [address] [place] [address] Care Team Providers Care Perishable Fruit Inspector Name Role Phone Unavailable Primary Care Provider Unavailabl e Encounter Details Date Type Department Care Team (Late st Contact Info) Description 09/19/[address] [facility] [address] [place] [address] Jazzmine Sevilla MD Social History Tobacco Use [...] as of this encounter Visit Diagnoses Diagnosis Symptom associated with female genital organs Unspecified symptom associated with female genital organs documented in this encounter
--- OUTSIDE RECORDS SUMMARY | 2024-04-18 02:50 | XMS_ITS | Encounter Summary ---
Author Organization [facility] Address [address] [place] [address]. [place] [address] [place] [address] Care Team Providers Care Roll Forger Name Role Phone Unavailable Primary Care Provider Unavailabl e Encounter Details Date Type Department Care Team (Late st Contact Info) Description 09/04/2011 Abstract [facility] [address] [place] [address] Winifred Ibarra MD [address] [place] [address] Social History Tobacco Use Types Packs/Day Years Used Date Smoking Tobacco: Never Assessed Comments Unknown Sex and Gender Information Value Date Recorded Sex Assigned at Not on file Legal Sex Female 7:34 PM CDT Gender Identity Not on file Sexual Orientation Not on file documented as of this encounter Plan of Treatment Not on file documented as of this encounter Visit Diagnoses Diagnosis Dyspepsia and other specified disorders of function of stomach documented in this encounter
--- OUTSIDE RECORDS SUMMARY | 2024-04-18 02:50 | XMS_ITS | Encounter Summary ---
Author Organization [facility] Address [address] [place] [address]. [place], [place] [phone] [place], [place] [phone] Care Team Providers Care Adoption Counselor Name Role Phone Unavailable Primary Care Provider Unavailabl e Encounter Details Date Type Department Care Team (Late st Contact Info) Description 04/16/1999 Abstract [facility] [address] [place] [address] , Generic Conversion, Social History Tobacco Use [...]
--- OUTSIDE RECORDS SUMMARY | 2024-04-18 02:50 | XMS_ITS | Encounter Summary ---
Author Organization [facility] Address [address] [place] [address]. [place], [place] [address] [place], [place] [phone] Care Team Providers Care Visual Developer Name Role Phone Unavailable Primary Care Provider Unavailabl e Encounter Details Date Type Department Care Team (Late st Contact Info) Description 05/21/2000 Abstract [facility] [address] [place] [address] , Generic Conversion, Social History Tobacco Use [...]
--- OUTSIDE RECORDS SUMMARY | 2024-04-18 02:50 | XMS_ITS | Encounter Summary ---
Author Organization [facility] Address [address] [place] [address]. [place], [place] [address] [place], [place] [phone] Care Team Providers Care Insurance Representative Name Role Phone Unavailable Primary Care Provider Unavailabl e Encounter Details Date Type Department Care Team (Late st Contact Info) Description 04/05/1999 Abstract [facility] [address] [place] [address] , Generic Conversion, Social History Tobacco Use [...]
--- OUTSIDE RECORDS SUMMARY | 2024-04-18 02:50 | XMS_ITS | Clinical Summary ---
Author Organization [facility] Address [address] [place] [address]. [place] [address] Care Team Providers Care Senior Product Designer Name Role Phone Unavailable Primary Care Provider Unavailabl e Social History Tobacco Use Types Packs/Day Years Used Date Smoking Tobacco: Never Assessed Comments Unknown Sex and Gender Information Value Date Recorded Sex Assigned at Not on file Legal Sex Female 7:34 PM CDT Gender Identity Not on file Sexual Orientation Not on file Plan of Treatment Health Maintenance Due Date Last Done Comments Cervical Cancer Screening Pa p Smear (Age 30 to 64) Every 3 Years 1969 Colorectal Cancer Screening Colonoscopy (10 Years) 1969 Annual Physical 1972 Hepatitis C 07/12/1987 DTaP, Tdap and Td Vaccines ( 1 - Tdap) 1988 Hepatitis B Vaccines (1 of 3 - 19+ 3-dose series) 1988 Cervical Cancer Screening Pa p with HPV Testing (Age 30 to 64) Every 5 Years 07/12/1999 Cervical Cancer Screening with HPV 07/12/1999 Mammogram Screening 2009 Zoster Vaccines (1 of 2) 07/12/2019 COVID-19 Vaccine ( - 2023-2 5 season) 2023 Influenza Adult (#1) 2024 Meningococcal Vaccine Aged Out No iza obey eligible based on patient's age to complete this topic Pneumococcal Vaccine: Pediat rics (0 to 5 Years) and At-Risk Patients (6 to 64 Years) Aged Out No longer eligible b ased on patient's age to complete this topic RSV Immunizations Under 20 Months Aged Out No longer eligible based on patient's age to complete this topic
--- OUTSIDE RECORDS SUMMARY | 2024-04-18 02:50 | XMS_ITS | Encounter Summary ---
Author Organization [facility] Address [address] [place] [address]. [place], [place] [id number] [place], [place] [id number] Care Team Providers Care Stone Belt Sander Name Role Phone Unavailable Primary Care Provider Unavailabl e Encounter Details Date Type Department Care Team (Late st Contact Info) Description 05/22/1998 Abstract SFL CONVERSION [address] [place] [address] , Generic Conversion, Social History Tobacco Use [...]
--- OUTSIDE RECORDS SUMMARY | 2024-04-18 02:50 | XMS_ITS | Encounter Summary ---
Author Organization [facility] Address [address] [place] [address]. [place], [place] [id number] [place], [place] [id number] Care Team Providers Care Leather Drier Name Role Phone Unavailable Primary Care Provider Unavailabl e Encounter Details Date Type Department Care Team (Late st Contact Info) Description 03/27/1999 Abstract SFL CONVERSION [address] [place] [address] , Generic Conversion, Social History Tobacco Use [...]
--- OUTSIDE RECORDS SUMMARY | 2024-04-18 02:50 | XMS_ITS | Encounter Summary ---
Author Organization [facility] Address [address] [place] [address]. [place], [place] [phone] [place] [address] Care Team Providers Care Renovator Machine Operator Name Role Phone Unavailable Primary Care Provider Unavailabl e Encounter Details Date Type Department Care Team (Late st Contact Info) Description 03/03/2007 Abstract SJB CONVERSION [address] [place] [address] Neri Lewis MD [address] [place] [id number] Social History Tobacco Use Types Packs/Day Years [...]
--- OUTSIDE RECORDS SUMMARY | 2024-04-18 02:50 | XMS_ITS | Encounter Summary ---
Author Organization [facility] Address [address] [place] [address]. [place] [id number] [place], [place] [phone] Care Team Providers Care Retail Branch Manager Name Role Phone Unavailable Primary Care Provider Unavailabl e Encounter Details Date Type Department Care Team (Late st Contact Info) Description 03/03/2007 Abstract SJB CONVERSION [address] [place] [address] Social History Tobacco Use Types Packs/Day Years [...]
--- OUTSIDE RECORDS SUMMARY | 2024-04-18 02:50 | XMS_ITS | Encounter Summary ---
Author Organization [facility] Address [address] [place] [address]. [place], [place] [phone] [place], [place] [phone] Care Team Providers Care Bottled Beverage Inspector Name Role Phone Unavailable Primary Care Provider Unavailabl e Encounter Details Date Type Department Care Team (Late st Contact Info) Description 03/20/1999 Abstract SFL CONVERSION [address] [place] [address] , Generic Conversion, Social History Tobacco Use [...]
--- OUTSIDE RECORDS SUMMARY | 2024-04-18 02:50 | XMS_ITS | Encounter Summary ---
Author Organization [facility] Address [address] [place] [address]. [place], [place] [phone] [place], [place] [phone] Care Team Providers Care Cyber Legal Advisor Name Role Phone Unavailable Primary Care Provider Unavailabl e Encounter Details Date Type Department Care Team (Late st Contact Info) Description 03/28/1995 Abstract SFL CONVERSION [address] [place] [address] , Generic Conversion, Social History Tobacco Use [...]
--- OUTSIDE RECORDS SUMMARY | 2024-04-18 02:50 | XMS_ITS | Encounter Summary ---
Author Organization [facility] Address [address] [place] [address]. [place], [place] [phone] [place] [address] Care Team Providers Care Auto Bumper Straightener Name Role Phone Unavailable Primary Care Provider Unavailabl e Encounter Details Date Type Department Care Team (Late st Contact Info) Description 09/27/[address] [facility] [address] [place] [address] Jazzmine Sevilla MD Social History Tobacco Use [...]
--- OUTSIDE RECORDS SUMMARY | 2024-04-18 02:50 | XMS_ITS | Encounter Summary ---
Author Organization [facility] Address [address] [place] [address]. [place], [place] [phone] [place], [place] [phone] Care Team Providers Care Accountant Tax Name Role Phone Unavailable Primary Care Provider Unavailabl e Encounter Details Date Type Department Care Team (Late st Contact Info) Description 12/10/1995 Abstract SFL CONVERSION [address] [place] [address] , Generic Conversion, Social History Tobacco Use [...]
--- OUTSIDE RECORDS SUMMARY | 2024-04-18 02:50 | XMS_ITS | Encounter Summary ---
Author Organization [facility] Address [address] [place] [address]. [place], [place] [phone] [place] [address] Care Team Providers Care Forest Ecology Professor Name Role Phone Unavailable Primary Care Provider Unavailabl e Encounter Details Date Type Department Care Team (Late st Contact Info) Description 02/24/2007 Abstract SJB CONVERSION [address] [place] [address] Emi Ramirez PA-C [address] [place] [address] [address] [place] [id number] Social History Tobacco Use Types Packs/Day [...]
== END 2024-04-12 08:02 | disposition home or self-care (01) ==
LOC: CHSIMG 08:03
PROVIDERS: PCP Internal Medicine; Visit Provider Obstetrics & Gynecology
DX: Z12.31 Encounter for screening mammogram for malignant neoplasm of breast (principal)
CPT/HCPCS: 77063; 77067